=== PATIENT | female | born 1950 | race Caucasian/White ===

== ENCOUNTER → 2018-04-15 12:52 | Outpatient (CLI) | payer MEDICARE, OTHER, SELFPAY | PROVIDERS: PCP Nurse Practitioner Family; Visit Provider Nurse Practitioner Family | DX: M85.832 Other specified disorders of bone density and structure, left forearm (principal); Z78.0 Asymptomatic menopausal state; Z85.42 Personal history of malignant neoplasm of other parts of uterus | CPT/HCPCS: 77080; 77081 ==

== ENCOUNTER → 2019-08-16 10:41 | Outpatient (CLI) | payer MEDICARE, OTHER, SELFPAY ==
--- NOTE | 2019-08-18 11:20 | DIET.PN ---
Diabetes Intake: Initial Assessment Assess: Mrs Ryan is a 69 YOF referred for type 2 diabetes, hyperlipidemia, and obesity. She is newly diagnosed x 1 week ago. She presents with concerns related to several side effects related to food allergies from dark green vegetables including hay fever, eczema, contact dermatitis, and asthma. She is not taking any diabetes medications and is currently not monitoring her BG as she has not yet been prescribed a meter. She discussed some barriers to physical activity including 2 hip replacements and knee issues. She is walking daily, but is not able to go more than 15-20 min at a time. She appears very motivated to control her diabetes. Labs: Per pt report: A1c: 6.5 FB TC: 176 LDL: 68 HDL: 81 Tr Meds: NA Diet: per 24 hr recall: reports very high in starch and sugar. She has a sweet tooth Wt: 220 lb Ht: 62 in BMI: 40.2 Goal Wt: < 200 (214 @ 10%) DX: Altered nutrition related laboratory values related to impaired glucose metabolism, lack of previous exposure to nutrition information as evidenced by pt report, diagnosis of diabetes, previous diet high in refined carbohydrates. Intervention: 1. Completed intake assessment. Discussed barriers to care. 2. Discussed pathophysiology of diabetes. Reviewed A1c and its correlation to blood glucose numbers. Discussed recommended BG ranges. 3. Discussed importance of self-monitoring, how often, and when to check. Will demonstrate use of meter when received. 4. Reviewed hyper/hypoglycemia and treatment. 5. Reviewed safe disposal of equipment (strip/lancets/insulin needles). 6. Created SMART goals for pt self-care and success. 7. Discussed program curriculum outline and class needs based on individual goals. SMART Goals: 1. Lose 5% of current weight in 3 months with an overall goal of 10% through changes in dietary patterns by cutting down on starches and increased physical activity. 2. Lower A1c by monitoring FBG and alternating PPG. Monitor/Evaluate: Anticipate excellent compliance. Pt will attend full DSME program. Exercise and Lifestyle scheduled for 08/18/19.
== END ==
PROVIDERS: PCP Nurse Practitioner Family; Visit Provider Nurse Practitioner Family
DX: E11.9 Type 2 diabetes mellitus without complications (principal); E78.5 Hyperlipidemia, unspecified; E66.9 Obesity, unspecified; Z71.3 Dietary counseling and surveillance
CPT/HCPCS: G0108

== ENCOUNTER → 2019-08-18 09:51 | Outpatient (CLI) | payer MEDICARE, OTHER, SELFPAY | PROVIDERS: PCP Nurse Practitioner Family; Visit Provider Nurse Practitioner Family | DX: E11.9 Type 2 diabetes mellitus without complications (principal); E78.5 Hyperlipidemia, unspecified; E66.9 Obesity, unspecified; Z71.3 Dietary counseling and surveillance | CPT/HCPCS: G0109 ==

== ENCOUNTER → 2019-08-19 13:27 | Outpatient (CLI) | payer MEDICARE, OTHER, SELFPAY ==
--- NOTE | 2019-08-19 | DI.MG.S_ITS ---
BILATERAL DIGITAL SCREENING MAMMOGRAM 3D/2D WITH CAD: 08/19/2019 CLINICAL: Routine screening. Family history of breast cancer. Comparison is made to exams dated: 02/07/2010 mammogram, 02/14/2010 mammogram, 10/27/2011 mammogram, and 12/10/2012 mammogram - [facility]. The tissue of both breasts is predominantly fatty. Current study was also evaluated with a Computer Aided Detection (CAD) system. There is a biopsy clip in the left breast. No significant masses, calcifications, or other findings are seen in either breast. There has been no significant interval change. IMPRESSION: NEGATIVE There is no mammographic evidence of malignancy. A 1 year screening mammogram is recommended. This exam was interpreted at Station ID: [id number]. NOTE: For mammograms, a report in lay terms will be sent to the patient. Approximately 15% of breast malignancies will not be visualized mammographically. In the management of a palpable breast mass, a negative mammogram must not discourage biopsy of a clinically suspicious lesion. Electronically Signed By: Richard garibay/nolan:08/20/2019 13:12:38 letter sent: Normal Exam ACR BI-RADS Category 1: Negative [id number]
== END ==
PROVIDERS: PCP Nurse Practitioner Family; Visit Provider Nurse Practitioner Family
DX: Z12.31 Encounter for screening mammogram for malignant neoplasm of breast (principal); Z80.3 Family history of malignant neoplasm of breast
CPT/HCPCS: 77063; 77067

== ENCOUNTER → 2019-08-22 14:02 | Outpatient (CLI) | payer MEDICARE, OTHER, SELFPAY | PROVIDERS: PCP Nurse Practitioner Family; Visit Provider Nurse Practitioner Family | DX: E11.9 Type 2 diabetes mellitus without complications (principal); Z71.3 Dietary counseling and surveillance | CPT/HCPCS: G0109 ==

== ENCOUNTER → 2019-09-01 09:45 | Outpatient (CLI) | payer MEDICARE, OTHER, SELFPAY ==
--- NOTE | 2019-09-01 15:19 | DIET.PN ---
Dietary Progress Note Diabetes: Healthy Eating 2 Intervention: Fats effects on glucose, weight, heart disease, cholesterol Sat Vs Unsat Protein- animal and plant based options Low, med, high fat meats Sugar substitutes Sodium Health claims Grocery shopping guidelines Eating away from home Alcohol Sick day guidelines
== END ==
PROVIDERS: PCP Nurse Practitioner Family; Visit Provider Nurse Practitioner Family
DX: E11.9 Type 2 diabetes mellitus without complications (principal); Z71.3 Dietary counseling and surveillance
CPT/HCPCS: G0108

== ENCOUNTER → 2019-09-26 12:43 | Outpatient (CLI) | payer MEDICARE, OTHER, SELFPAY ==
[2019-09-26 12:53] VITALS: BMI 40.2
--- NOTE | 2019-09-26 16:26 | DIET.PN ---
DIABETES Nutrition Initial Assessment:? LABS: Per pt report:? FB?s 2hr PP: low 100?s ? Weight: 218 lb (down from 226) Height: 62? NUTRITION DX 1. Altered Nutrition related labs related to impaired glucose metabolism, lack of previous exposure to accurate nutrition information as evidenced by pt report, dx of diabetes, previous diet high in refined carbohydrates.? INTERVENTION(s): 1. Discussed pathophysiology of diabetes and impact of nutrition/diet on blood sugar control.? Discussed fed versus non-fed state.?? 2. Discussed the effect of carbohydrates/protein/fat on blood sugar control.? Stressed importance of consistent carbohydrate intake at each meal and provided instructions for recommended servings/portions of carbohydrates/protein per meal. Provided pt with educational material. 3. Reviewed carbohydrate counting and measuring carbohydrate content via servings sizes and reading nutrition labels.? Provided handouts.?? 4. Discussed the difference between simple versus complex carbohydrates and the effect of fiber on blood sugar control.? Discussed various methods to increase fiber content in diet. 5. Stressed importance of meal timing and not going >4-5 hours between meals. Encouraged adding protein to evening snack to support glucose control overnight. Patient agreeable. 6. Discussed healthy weight loss goals of 1-2lbs per week through diet and exercise.? Pt agreeable to walking at least 30 minutes daily. MONITOR/EVALUATE: Anticipate excellent compliance.? Nutrition follow-up scheduled for 1 month.
== END ==
PROVIDERS: PCP Nurse Practitioner Family; Visit Provider Nurse Practitioner Family
DX: E11.9 Type 2 diabetes mellitus without complications (principal); Z71.3 Dietary counseling and surveillance
CPT/HCPCS: G0109

== ENCOUNTER → 2019-11-21 09:48 | Outpatient (CLI) | payer MEDICARE, OTHER, SELFPAY ==
--- NOTE | 2019-11-21 14:00 | DIET.PN ---
Diabetes Follow Up Assess: Met for Ms. Ryan?s 3 mo follow up visit. She is happy to report a decrease in her A1c and weight loss since beginning the DSME. She has increased her vegetable intake and continues to try new vegetables and ways to prepare them. She has been weighing her food and reading food labels differently. She admits it was challenging at first, but she is learning to try new options and tricks for curbing her sweet tooth without indulging too much. She has been trying different sugar substitutes is now making her own trail mixes. She has not been able to be active for many years due to a back injury. She purchased a glider for indoor activity and has now been exercising 20-30 min every day. Labs: A1c: 6.3 album/creat: 10 Meds: none Dietary changes: portion control, label reading, cutting out sweets Ht: 62? Wt: 211 (down 9#) BMI: 38.5 Nutrition DX: Altered nutrition related laboratory values related to impaired glucose metabolism, lack of previous exposure to nutrition information as evidenced by pt report, diagnosis of diabetes, previous diet high in refined carbohydrates. Intervention: 1. Completed follow up assessment. Reviewed barriers to care. 2. Reviewed new labs and importance of continued BG monitoring. 3. Reviewed SMART goals and made modifications where appropriate including wt management, activity, and A1c goals. 4. Discussed plan for ongoing support. Provided information for continued support and success. SMART goals: 1. Continue portion control by weighing and measuring foods. 2. Continue to research new ways and/or foods to not feel deprived reducing sugar. 3. Continue exercising daily for 30 min while working to increase intensity. Monitor/Evaluate: Pt will follow up in 3 mo to discuss new labs and barriers to care.
== END ==
PROVIDERS: PCP Nurse Practitioner Family; Referring Provider Nurse Practitioner Family; Visit Provider Nurse Practitioner Family
DX: E11.9 Type 2 diabetes mellitus without complications (principal); E66.9 Obesity, unspecified; Z68.38 Body mass index [BMI] 38.0-38.9, adult; Z71.3 Dietary counseling and surveillance
CPT/HCPCS: G0109

== ENCOUNTER → 2019-12-08 09:44 | Outpatient (CLI) | payer MEDICARE, OTHER, SELFPAY ==
--- NOTE | 2019-12-08 12:02 | DIET.PN ---
Diabetes Physiology: Intervention 1. Diabetes physiology 2. Detecting and treatment of acute and chronic complications 3. Diagnosis of and difference in types of diabetes 4. Self-monitoring and pattern management a. Demonstrate glucometer and control testing b. Explain BG results and action to take when out of range. 5. Foot , eye, dental care 6. Medications a. Oral medication classification b. Injectable c. Insulin i. Injection protocol ii. Other delivery methods
== END ==
PROVIDERS: PCP Nurse Practitioner Family; Referring Provider Nurse Practitioner Family; Visit Provider Nurse Practitioner Family
DX: E11.9 Type 2 diabetes mellitus without complications (principal); Z71.3 Dietary counseling and surveillance
CPT/HCPCS: G0109

== ENCOUNTER 2020-05-30 10:59 | Inpatient (IN) | payer MEDICARE, OTHER, SELFPAY ==
[2020-05-30] VITALS (9 sets, daily range): BP systolic 107–142; BP diastolic 57–84; PULSE 50–95; RESP 15–22; TEMP 36.1–36.7; O2SAT 94–100; BMI 35.5
--- NOTE | 2020-05-30 11:19 | DI.RAD.S_ITS ---
PROCEDURE: XR CHEST 2V INDICATIONS: HYPOXEMIA TECHNIQUE: 2 views of the chest were acquired. COMPARISON: None. FINDINGS: Surgical changes and devices: None. Lungs and pleura: Lungs are minimally abnormal with a small degree of stranding at the left lung base adjacent to the left ventricular apex. No pleural effusions or pneumothorax. Mediastinum: Mediastinal contours are normal. Heart size is normal. Bones and chest wall: No suspicious bony abnormalities. Soft tissues appear unremarkable. IMPRESSION: Possible mild or early pneumonia versus scarring left lower lobe adjacent to the left ventricular apex. Dictated by: Anselmo Newman M.D. on 05/30/2020 at 11:58 Approved by: Anselmo Newman M.D. on 05/30/2020 at 11:59
[2020-05-30 11:38] LABS: Add Manual Diff / Slide Review NO; Basophils Absolute Auto 100 /uL (0-100); Basophils Percent Auto 0.4 % (0-2); Eosinophils Absolute Auto 0 /uL (0-450); Eosinophils Percent Auto 0.1 % (2-4); Hematocrit 32.9 % (36-46); Hemoglobin 10.9 g/dL (12.0-16.0); Lymphocytes Absolute Auto 3100 /uL (1100-4500); Lymphocytes Percent Auto 25.8 % (25-40); Mean Corpuscular Hemoglobin 29.4 PG (26-34); Mean Corpuscular Volume 89.1 fL (80-100); Monocytes Absolute Auto 800 /uL (0-900); Monocytes Percent Auto 6.2 % (3-14); Neutrophils Absolute Auto 8100 /uL (1500-7000); Neutrophils Percent Auto 67.5 % (50-75); Platelet Count 322 X10^3/uL (150-400); Red Blood Cell Count 3.69 X10^6/uL (4.0-5.2); Red Cell Distribution Width 14.8 % (11.6-14.8); White Blood Cell Count 12.1 X10^3/uL (4.5-11.0)
[2020-05-30 11:45] LABS: INR 1.1 (0.9-1.3); Prothrombin Time 12.3 SECONDS (10.1-12.7)
[2020-05-30 11:47] LABS: PTT Partial Thromboplastin Tim 29 SECONDS (26.4-36.2)
[2020-05-30 11:50] LABS: Alanine Aminotransferase 28 IU/L (<35); Albumin 4.3 g/dL (3.5-5.0); Albumin Globulin Ratio 1.5 (1.0-2.8); Alkaline Phosphatase 96 U/L (38-126); Aspartate Aminotransferase 34 IU/L (14-36); BUN Creatinine Ratio 40.3 (6-22); Bilirubin Total 0.3 mg/dL (0.2-1.3); Blood Urea Nitrogen 31 mg/dL (7-17); Calcium 9.5 mg/dL (8.4-10.2); Carbon Dioxide 21 mmol/L (22-32); Chloride 103 mmol/L (98-107); Estimated Glomerular Filt Rate > 60.0 mL/min (>60); Globulin 2.9 g/dL (1.7-4.1); Glucose 160 mg/dL (80-110); HEMOLYSIS < 15 (0-50); Sodium 136 mmol/L (137-145); Total Protein 7.2 g/dL (6.3-8.2)
[2020-05-30 11:58] LABS: Amylase 70 U/L (30-110); Lipase 118 U/L (23-300)
[2020-05-30] MEDS: SODIUM CHLORIDE 0.9% 1,000 ML 150 ML IV ×2 (12:18→21:17)
[2020-05-30] MEDS: PANTOPRAZOLE 40 MG VIAL IV ×2 (12:18→21:17)
[2020-05-30] MEDS: INSULIN ASPART 100 UNIT/ML INSULN PEN SUBCUT (12:18)
[2020-05-30 12:35] LABS: Thyroid Stimulating Hormone 3.58 uIU/mL (0.47-4.68)
[2020-05-30 13:03] LABS: COVID19 -Nasal RAPID Negative (Negative)
[2020-05-30] MEDS: ACETAMINOPHEN 325 MG TABLET 650 MG PO (13:17)
--- NOTE | 2020-05-30 13:30 | PM.CN ---
History of Present Illness Consult details Date Patient Seen: 05/30/20 Time Patient Seen: 12:30 Chief complaint: GI bleed Reason for consult: GI bleed Requesting provider: Cecilia Oliva Narrative: The patient is a woman who began having black bowel movements on Wednesday. She has had several each today since then. She noticed also some vague discomfort across her lower abdomen the night before the black bowel movements began. She has never had this happen though she has had hematemesis in the distant past related to antibiotic use. She has been feeling dizzy if she stands for a long time and her heart rate goes up since Wednesday. She has not had any heart problems in the past. Her only abdominal procedures have been a total abdominal hysterectomy. Meds Home Medications and Allergies Home Medications Medication Instructions Recorded Confirmed Type simvastatin 20 mg PO BEDTIME 05/30/20 05/30/20 History Allergies Allergy/AdvReac Type Severity Reaction Status Date / Time latex AdvReac Rash Verified 05/30/20 12:48 Penicillins AdvReac Nausea Verified 05/30/20 12:48 raw vegetable AdvReac Rash Verified 05/30/20 12:48 shellfish derived AdvReac Rash Verified 05/30/20 12:49 Review of Systems Review of Systems Narrative: Patient has a headache she believes because she did not have caffeine this morning. No pain in her eyes double vision earache sore throat or trouble swallowing. She is missing her right lower crown. She has no pain because she had a root canal in that tooth. She does were glasses. No cough or cold. She used to get breathing attacks and wheezing but that was many years ago. She has no chest pain or heart murmurs. She does get short winded with walking it especially right now. Patient has no bloody bowel movements. No hematemesis. No nausea. No dysuria hematuria or kidney stones. Patient denies seizures or blackouts. She denies anxiety or depression. She denies problems with easy bruising or use of anticoagulants. She denies problems with her pancreas or her thyroid though she is a diet-controlled diabetic. Exam Vital Signs (past 8 hours): - 05/30/20 12:06 Temperature 98 F Pulse Rate 95 H Respiratory Rate 16 Blood Pressure 135/75 Pulse Oximetry 99 Oxygen Flow Rate 0 Narrative Exam Narrative: Cooperative woman in no apparent distress. Her BMI is 35.5. Her eyes are nonicteric. Pupils equal round reactive to light. Conjunctiva pink ears without lesion nasal septum midline. Missing the crown from the right lower. No splits in her lips. Her lungs are clear to auscultation without rales or rhonchi. Equal percussion. Heart regular rate and rhythm without murmur gallop. No bruit in the neck. No mass in the neck. No neck or supraclavicular nodes. Abdomen is protuberant soft. There is no guarding. No tenderness whatsoever at this time. She is alert and oriented x3. Speech rate and content are appropriate. Affect is appropriate. Objective Labs Result Diagrams: 05/30/20 11:26 05/30/20 11:26 Labs: Laboratory Results - last 24 hr 05/30/20 05/30/20 05/30/20 11:26 11:26 11:26 WBC 12.1 H RBC 3.69 L Hgb 10.9 L Hct 32.9 L MCV 89.1 MCH 29.4 MCHC 33.0 RDW 14.8 Plt Count 322 Neut % (Auto) 67.5 Lymph % (Auto) 25.8 Donley % (Auto) 6.2 Eos % (Auto) 0.1 L Baso % (Auto) 0.4 Neut # (Auto) 8100 H Lymph # (Auto) 3100 Donley # (Auto) 800 Eos # (Auto) 0 Baso # (Auto) 100 PT 12.3 INR 1.1 APTT 29 Sodium 136 L Potassium 4.0 Chloride 103 Carbon Dioxide 21 L BUN 31 H Creatinine 0.77 Estimated GFR > 60.0 BUN/Creatinine Ratio 40.3 H Glucose 160 H Calcium 9.5 Total Bilirubin 0.3 AST 34 ALT 28 Alkaline Phosphatase 96 Total Protein 7.2 Albumin 4.3 Globulin 2.9 Albumin/Globulin Ratio 1.5 Amylase Lipase TSH COVID-19 PCR Blood Type Antibody Screen 05/30/20 05/30/20 05/30/20 11:26 11:26 11:36 WBC RBC Hgb Hct MCV MCH MCHC RDW Plt Count Neut % (Auto) Lymph % (Auto) Donley % (Auto) Eos % (Auto) Baso % (Auto) Neut # (Auto) Lymph # (Auto) Donley # (Auto) Eos # (Auto) Baso # (Auto) PT INR APTT Sodium Potassium Chloride Carbon Dioxide BUN Creatinine Estimated GFR BUN/Creatinine Ratio Glucose Calcium Total Bilirubin AST ALT Alkaline Phosphatase Total Protein Albumin Globulin Albumin/Globulin Ratio Amylase 70 Lipase 118 TSH 3.58 COVID-19 PCR Blood Type O Positive Antibody Screen Negative 05/30/20 12:00 WBC RBC Hgb Hct MCV MCH MCHC RDW Plt Count Neut % (Auto) Lymph % (Auto) Donley % (Auto) Eos % (Auto) Baso % (Auto) Neut # (Auto) Lymph # (Auto) Donley # (Auto) Eos # (Auto) Baso # (Auto) PT INR APTT Sodium Potassium Chloride Carbon Dioxide BUN Creatinine Estimated GFR BUN/Creatinine Ratio Glucose Calcium Total Bilirubin AST ALT Alkaline Phosphatase Total Protein Albumin Globulin Albumin/Globulin Ratio Amylase Lipase TSH COVID-19 PCR Negative Blood Type Antibody Screen Assessment & Plan Assessment & Plan narrative: Patient with black bowel movements dizziness and tachycardia and shortness of breath with exertion most likely related to an upper GI bleed. She last ate this morning at 8:00 a.m.. We will perform an EGD at about 3:00 p.m.. I have discussed the procedure with her. Risks of bleeding perforation were discussed. She appears to understand wishes to proceed. I prescribed some Tylenol for her headache. She is already on a proton pump inhibitor. She is being given insulin related to her elevated glucose of 160.
--- NOTE | 2020-05-30 13:39 | PM.PREOP ---
Pre-operative Note COVID-19 COVID-19 status: Negative Result date/Date tested (Pos, Neg/Pending): 05/30/20 Interval Note History & Physical reviewed/Exam performed by Physician: Yes Changes to H&P: No ASA Class (for procedural sedation): II
--- NOTE | 2020-05-30 14:38 | PC.NURSE ---
Pt not in room at this time, pt was picked up for endoscopy, pt NPO and was allowed to have small amount of water with Tylenol per Dr Torres prior to procedure.
[2020-05-30] MEDS: LACTATED RINGERS 1,000 ML 200 ML IV (14:41)
[2020-05-30] MEDS: fentaNYL 250 MCG/5 ML INJ IV (15:22)
[2020-05-30] MEDS: MIDAZOLAM 5 MG/5 ML VIAL IV (15:23)
[2020-05-30] MEDS: LIDOCAINE 4% SOLN 50 ML 20 ML TOP (15:24)
[2020-05-30] MEDS: EPINEPHrine 1 MG/10 ML SYRINGE IV (15:36)
--- NOTE | 2020-05-30 15:36 | PM.OP.ENDO ---
Operative Date/Time/Diagnoses Date of procedure: 05/30/20 Time of procedure: 15:36 Pre-op diagnosis: Upper GI bleed Post-op diagnosis: same (Duodenal ulcer disease with evidence of recent bleed) Procedure & Clinicians Study performed: EGD with injection of epinephrine in ama-ulcer tissue Same procedure as scheduled: Yes Indications: Patient with an upper GI bleed. Diagnostic and therapeutic scope performed. Surgeon: Christ Torres Procedure Notes SCOAP/Timeout: Performed Procedure in detail: The patient had topical anesthetic applied to oropharynx. She was placed in left lateral decubitus position and underwent IV sedation directed by the surgeon consisting of fentanyl and Versed. A bite block was inserted and the scope was advanced through it into the esophagus. The esophagus was unremarkable. GE junction was noted at 38 cm from the incisors. The stomach insufflated well. There were no lesions seen in the body, antrum or at the incisura. There was no blood in the stomach or esophagus. The pyloric channel was is widely patent. The duodenum had a deep posterior ulcer with clot in place which I could not irrigate off. On the anterior wall opposite it was a small more superficial ulcer. No evidence of bleeding from it. I injected epinephrine surrounding the posterior wall ulcer with good blanching of the tissue circumferentially.. The scope was brought back into the stomach and retroflexed. The proximal stomach normal in appearance. The scope was straightened and brought out through the esophagus again. No lesions were seen. The scope was removed and the patient tolerated the procedure well. Scope withdrawal time: Not applicable Sedation minutes: 12 Findings: duodenal ulcer Specimen(s): none sent Complications: none Post-procedure Recommendations: Other recommendation (EGD in 10-12 weeks to confirm healing) Follow up: months (One) Disposition: PACU
[2020-05-30] MEDS: metroNIDAZOLE 500 MG TABLET PO ×2 (16:55→21:20)
[2020-05-30] MEDS: CLARITHROMYCIN 500 MG TABLET PO ×2 (16:55→21:21)
--- NOTE | 2020-05-30 17:48 | P.HP_ITS ---
History of Present Illness History of Present Illness Date Patient Seen: 05/30/20 Time Patient Seen: 11:29 Date of Onset of Symptoms: 05/27/20 Chief complaint: GI bleed Narrative: This pleasant 69-year-old female is followed by nurse practitioners at our clinic and this is the 1st time that I am seeing her. She presents to the clinic urgently with complaints of dizziness and racing pulse. She initially had called thinking that she had a ear infection but then revealed that whenever she stands up she gets weak in her knees and feels like she is going to fall down or pass out and in fact gets presyncope with having tunnel vision. She then develops a racing heart and starts sweating with really minimal activity. She has had no appetite eating very little her stomach feels full and she feels queasy. She has not had diarrhea but she has had 3-4 stools a day that are black tar the wooziness made her think that she had your infect ion she has a problem with her muscle in her neck and at refers pain to this but she has had that for years. She takes Aleve on a regular basis sometimes takes it daily for arthritic pain. She does not drink alcohol. She drinks 1 cup of coffee a day and no soda. She really has not been eating much since Wednesday she has just been forcing herself to eat her blood sugars have been in the 90s fasti ng and after meals 127-175. She has not had fevers chills or cough. She has not had any abdominal pain but just feels bloating and feels that her upper stomach feels weird or C6. She has not had bright red blood per rectum she has not had hematochezia. 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 She then noticed the following day on May 28 that her stools were loose in look like tar they were just really black. It has persisted this way. She denies chest pain, cough, palpitations. She does get dyspneic with any exertion. Past medical history: 1. Type 2 diabetes that is diet controlled 2. Hyperlipidemia 3. Obesity 4. Osteopenia 5. Degenerative joint disease Allergies: Penicillin causes nausea Latex causes a rash Past surgical history: 1. Total abdominal hysterectomy with BSO secondary to fibroids 2. Bilateral hip replacement secondary to degenerative joint disease Family history: Father at age 87 he had an acute DC and deafness Mom age 83 she had a stroke coronary artery disease, hyperlipidemia, osteo porosis Patient had 3 siblings One sibling committed suicide, suffered from depression Other 2 siblings are healthy Social history: Patient lives in [facility]. She moved here 3 years ago. She lives alone. She has a sister who I believe lives in [place] and a brother who travels between [place] and working in [place]. Patient has no children Health related behavior: Patient does not smoke and never has not a regular basis Patient does not drink any alcohol Patient is not very active Immunizations: Influenza 07/24/2019 Tdap 04/12/2018 Review of systems: Negative other than in HPI Patient is not had colonoscopy recently Patient had orthostatic hypotension in the clinic. Blood pressures were in the low 100s at the clinic. Patient History Medical History Diabetes mellitus (Acute ~2018) Hyperlipidemia (Acute) Skin cancer (Acute) Surgical History History of hysterectomy for cancer (Acute ~1997) S/P hip replacement (Acute ~2002) S/P hip replacement (Acute ~1997) Family & Social History Social History: household members none Prior Living Arrangements House Safety & Behavioral: Feels Safe in Current Yes Environment Been Physically Hurt or No Threatened By a Person Suicidal Ideation Description None Suicide Plan Description No Plan Tobacco & Substance use: Smoking Status Never smoker alcohol intake never Substance Use Type marijuana Meds Home Medications and Allergies Home Medications Medication Instructions Recorded Confirmed Type simvastatin 20 mg PO BEDTIME 05/30/20 05/30/20 History Allergies Allergy/AdvReac Type Severity Reaction Status Date / Time latex AdvReac Rash Verified 05/30/20 12:48 Penicillins AdvReac Nausea Verified 05/30/20 12:48 raw vegetable AdvReac Rash Verified 05/30/20 12:48 shellfish derived AdvReac Rash Verified 05/30/20 12:49 Exam Vital Signs (past 8 hours): - 05/30/20 12:06 05/30/20 15:43 05/30/20 15:45 Temperature 98 F 96.9 F L Pulse Rate 95 H 85 85 Respiratory Rate 16 22 19 Blood Pressure 135/75 112/59 L 114/57 L Pulse Oximetry 99 94 94 05/30/20 15:53 05/30/20 16:03 05/30/20 16:33 Temperature 97.6 F 97.4 F L Pulse Rate 50 L 82 82 Respiratory Rate 15 19 17 Blood Pressure 122/68 139/83 142/84 H Pulse Oximetry 98 100 97 05/30/20 17:25 Temperature 97.8 F Pulse Rate 95 H Respiratory Rate 17 Blood Pressure 136/70 Pulse Oximetry 100 Oxygen Delivery Method Room Air Oxygen Flow Rate 0 Narrative Exam Narrative: Patient is pale appears fatigued but no acute distress. Blood pressure 108/64. Patient was ambulated in the clinic and heart rate went to 154 and oxygen dropped to 85%. Patient is alert and oriented x3 Patient is a good historian HEENT: Unremarkable. Mucous membranes moist and pink Neck: Supple without adenopathy, thyromegaly, jugular venous distention or bruits Chest: Clear to auscultation without wheezes rhonchi or crackles Cor: Regular rate and rhythm with distant S1-S2, no audible murmur Abdomen: Positive bowel sounds, soft, nontender, nondistended, no hepatosplenomegaly, obese, mild midepigastric tenderness and left lower quadrant tenderness but no guarding, no rebound tenderness Extremities: No edema, pulses intact Skin no rashes Skin turgor normal Neurologic exam is unremarkable Rectal exam shows no masses or hemorrhoids or fissures but patient does have black tarry stool that is heme-positive Objective Labs Result Diagrams: 05/30/20 11:26 05/30/20 11:26 Labs: Laboratory Results - last 24 hr 05/30/20 05/30/20 05/30/20 11:26 11:26 11:26 WBC 12.1 H RBC 3.69 L Hgb 10.9 L Hct 32.9 L MCV 89.1 MCH 29.4 MCHC 33.0 RDW 14.8 Plt Count 322 Neut % (Auto) 67.5 Lymph % (Auto) 25.8 [place] % (Auto) 6.2 Eos % (Auto) 0.1 L Baso % (Auto) 0.4 Neut # (Auto) 8100 H Lymph # (Auto) 3100 [place] # (Auto) 800 Eos # (Auto) 0 Baso # (Auto) 100 PT 12.3 INR 1.1 APTT 29 Sodium 136 L Potassium 4.0 Chloride 103 Carbon Dioxide 21 L BUN 31 H Creatinine 0.77 Estimated GFR > 60.0 BUN/Creatinine Ratio 40.3 H Glucose 160 H Calcium 9.5 Total Bilirubin 0.3 AST 34 ALT 28 Alkaline Phosphatase 96 Total Protein 7.2 Albumin 4.3 Globulin 2.9 Albumin/Globulin Ratio 1.5 Amylase Lipase TSH COVID-19 PCR Blood Type Antibody Screen 05/30/20 05/30/20 05/30/20 11:26 11:26 11:36 WBC RBC Hgb Hct MCV MCH MCHC RDW Plt Count Neut % (Auto) Lymph % (Auto) [place] % (Auto) Eos % (Auto) Baso % (Auto) Neut # (Auto) Lymph # (Auto) [place] # (Auto) Eos # (Auto) Baso # (Auto) PT INR APTT Sodium Potassium Chloride Carbon Dioxide BUN Creatinine Estimated GFR BUN/Creatinine Ratio Glucose Calcium Total Bilirubin AST ALT Alkaline Phosphatase Total Protein Albumin Globulin Albumin/Globulin Ratio Amylase 70 Lipase 118 TSH 3.58 COVID-19 PCR Blood Type O Positive Antibody Screen Negative 05/30/20 12:00 WBC RBC Hgb Hct MCV MCH MCHC RDW Plt Count Neut % (Auto) Lymph % (Auto) [place] % (Auto) Eos % (Auto) Baso % (Auto) Neut # (Auto) Lymph # (Auto) [place] # (Auto) Eos # (Auto) Baso # (Auto) PT INR APTT Sodium Potassium Chloride Carbon Dioxide BUN Creatinine Estimated GFR BUN/Creatinine Ratio Glucose Calcium Total Bilirubin AST ALT Alkaline Phosphatase Total Protein Albumin Globulin Albumin/Globulin Ratio Amylase Lipase TSH COVID-19 PCR Negative Blood Type Antibody Screen Assessment & Plan Assessment & Plan narrative: 69-year-old female presents to clinic with dizziness and rapid heart rate with suspected upper GI bleed. Patient will be admitted to the hospital for further treatment and evaluation. Will start IV fluids at 150 cc an hour. Will do a stat CBC, CMP, lipase, amylase, TSH. Will do blood type and cross x2 units packed red blood cells. Will make her NPO Will start her on Protonix 40 mg IV Q 24 hours Will consult general surgery for probable EGD Will hold any further NSAIDs which I think is probably the causative agent. Assessment 2. Type 2 diabetes Plan: Currently will be NPO. Will do CBGS q.a.c. and q.h.s.. Will do sliding scale insulin low algorithm Assessment 3. Degenerative joint disease previously taking Aleve Plan: Will no longer be taking NSAIDs. Will use Tylenol as needed Assessment 4. Hyperlipidemia without any current issues Plan: Will give simvastatin once tolerating p.o. Assessment 5. : Hypoxemia and hypotension I suspect due to hypovolemia secondary to acute blood loss secondary to acute GI hemorrhage. Plan: IV fluids, EGD, Protonix, oxygen as needed, will monitor Code status is full code Co bit test is negative 75 minutes spent with patient in coordination of care exam formulation of plan and discussion with surgery COVID-19 COVID-19 status: Negative Result date/Date tested (Pos, Neg/Pending): 05/30/20 Quality VTE Deep Vein Thrombosis/Pulmonary Embolism Present on Admission: No
[2020-05-31] VITALS: BP 119/46; PULSE 89; RESP 16; TEMP 36.5; O2SAT 96
--- NOTE | 2020-05-31 00:16 | PC.NURSE ---
Patient seen and assessed at 2346. Is alert and oriented. Breath sounds CTA with RA sat of 96%. HRR; telemetry reading was SR. States she was having dizziness earlier but has now resolved. Denies nauseda. BT present and is passing flatus. Reports bloated feeling in abdomen but denies pain. Is able to turn herself in bed. Provided SBA when out of bed for safety as patient reports generalized weakness. Has trace bilateral pedal edema which she states is chronic. Fall risk score is moderate; bed alarm is activated.
[2020-05-31] MEDS: SODIUM CHLORIDE 0.9% 1,000 ML 150 ML IV ×4 (03:50→23:56)
[2020-05-31 03:52] VITALS: BP 103/58; PULSE 88; RESP 16; TEMP 37.2; O2SAT 93
[2020-05-31 05:18] LABS: Alanine Aminotransferase 23 IU/L (<35); Albumin Globulin Ratio 1.3 (1.0-2.8); Alkaline Phosphatase 66 U/L (38-126); Aspartate Aminotransferase 28 IU/L (14-36); BUN Creatinine Ratio 26.1 (6-22); Bilirubin Total 0.4 mg/dL (0.2-1.3); Blood Urea Nitrogen 18 mg/dL (7-17); Carbon Dioxide 24 mmol/L (22-32); Chloride 108 mmol/L (98-107); Estimated Glomerular Filt Rate > 60.0 mL/min (>60); Globulin 2.3 g/dL (1.7-4.1); Glucose 88 mg/dL (80-110); HEMOLYSIS < 15 (0-50); Potassium 3.8 mmol/L (3.4-5.1); Sodium 136 mmol/L (137-145); Total Protein 5.3 g/dL (6.3-8.2)
[2020-05-31 05:19] LABS: Add Manual Diff / Slide Review NO; Basophils Absolute Auto 100 /uL (0-100); Basophils Percent Auto 0.6 % (0-2); Eosinophils Absolute Auto 100 /uL (0-450); Eosinophils Percent Auto 0.7 % (2-4); Hematocrit 23.9 % (36-46); Hemoglobin 8.1 g/dL (12.0-16.0); Lymphocytes Absolute Auto 4000 /uL (1100-4500); Lymphocytes Percent Auto 39.3 % (25-40); Mean Corpuscular HGB Conc 33.9 % (30-36); Mean Corpuscular Hemoglobin 30.3 PG (26-34); Mean Corpuscular Volume 89.3 fL (80-100); Monocytes Absolute Auto 800 /uL (0-900); Monocytes Percent Auto 7.4 % (3-14); Neutrophils Absolute Auto 5300 /uL (1500-7000); Platelet Count 241 X10^3/uL (150-400); Red Blood Cell Count 2.68 X10^6/uL (4.0-5.2); Red Cell Distribution Width 14.7 % (11.6-14.8); White Blood Cell Count 10.2 X10^3/uL (4.5-11.0)
--- NOTE | 2020-05-31 06:04 | PM.PN.1 ---
Subjective Subjective Date Patient Seen: 05/31/20 Time Patient Seen: 06:04 Interval history: Doing better this morning. Still having some minor abdominal upset but denies nausea. No vomiting. Has been able to advance her diet. Still feeling very fatigued and weak. Exam Vital Signs (past 8 hours): - 05/31/20 00:00 05/31/20 03:52 Temperature 97.7 F 98.9 F Pulse Rate 89 88 Respiratory Rate 16 16 Blood Pressure 119/46 L 103/58 L Pulse Oximetry 96 93 Oxygen Delivery Method Room Air Oxygen Flow Rate 0 Narrative Exam Narrative: GENERAL: Alert and oriented, appearing stated age and in no acute distress. HEENT: Head normocephalic/atraumatic. Pupils equal, round, and reactive to light and accomodation. Extraocular muscles intact. Nasal mucosa moist, septum midline. Oral mucosa moist, no lesions. Neck soft and supple, no lymphadenopathy. LUNGS: Clear to ausculation bilaterally, no wheezes, rhonchi or rales. CV: Normal S1 and S2 with regular rate and rhythm, no audible murmurs, rubs or gallops. ABDOMEN: Soft, non-tender, non-distended, no organomegaly. Positive bowel sounds. EXTREMITIES: No clubbing, cyanosis, or edema. NEURO: Cranial nerves II through XII grossly intact, no focal deficits. PSYCH: Alert and oriented x 3. SKIN: No concerning lesions. Objective Labs Result Diagrams: 05/31/20 04:35 05/31/20 04:35 Labs: Laboratory Results - last 24 hr 05/30/20 05/30/20 05/30/20 11:26 11:26 11:26 WBC 12.1 H RBC 3.69 L Hgb 10.9 L Hct 32.9 L MCV 89.1 MCH 29.4 MCHC 33.0 RDW 14.8 Plt Count 322 Neut % (Auto) 67.5 Lymph % (Auto) 25.8 [place] % (Auto) 6.2 Eos % (Auto) 0.1 L Baso % (Auto) 0.4 Neut # (Auto) 8100 H Lymph # (Auto) 3100 [place] # (Auto) 800 Eos # (Auto) 0 Baso # (Auto) 100 PT 12.3 INR 1.1 APTT 29 Sodium 136 L Potassium 4.0 Chloride 103 Carbon Dioxide 21 L BUN 31 H Creatinine 0.77 Estimated GFR > 60.0 BUN/Creatinine Ratio 40.3 H Glucose 160 H Calcium 9.5 Total Bilirubin 0.3 AST 34 ALT 28 Alkaline Phosphatase 96 Total Protein 7.2 Albumin 4.3 Globulin 2.9 Albumin/Globulin Ratio 1.5 Amylase Lipase TSH COVID-19 PCR Blood Type Antibody Screen 05/30/20 05/30/20 05/30/20 11:26 11:26 11:36 WBC RBC Hgb Hct MCV MCH MCHC RDW Plt Count Neut % (Auto) Lymph % (Auto) [place] % (Auto) Eos % (Auto) Baso % (Auto) Neut # (Auto) Lymph # (Auto) [place] # (Auto) Eos # (Auto) Baso # (Auto) PT INR APTT Sodium Potassium Chloride Carbon Dioxide BUN Creatinine Estimated GFR BUN/Creatinine Ratio Glucose Calcium Total Bilirubin AST ALT Alkaline Phosphatase Total Protein Albumin Globulin Albumin/Globulin Ratio Amylase 70 Lipase 118 TSH 3.58 COVID-19 PCR Blood Type O Positive Antibody Screen Negative 05/30/20 05/31/20 05/31/20 12:00 04:35 04:35 WBC 10.2 RBC 2.68 L Hgb 8.1 L Hct 23.9 L MCV 89.3 MCH 30.3 MCHC 33.9 RDW 14.7 Plt Count 241 Neut % (Auto) 52.0 Lymph % (Auto) 39.3 [place] % (Auto) 7.4 Eos % (Auto) 0.7 L Baso % (Auto) 0.6 Neut # (Auto) 5300 Lymph # (Auto) 4000 [place] # (Auto) 800 Eos # (Auto) 100 Baso # (Auto) 100 PT INR APTT Sodium 136 L Potassium 3.8 Chloride 108 H Carbon Dioxide 24 BUN 18 H Creatinine 0.69 Estimated GFR > 60.0 BUN/Creatinine Ratio 26.1 H Glucose 88 Calcium 8.0 L Total Bilirubin 0.4 AST 28 ALT 23 Alkaline Phosphatase 66 Total Protein 5.3 L Albumin 3.0 L Globulin 2.3 Albumin/Globulin Ratio 1.3 Amylase Lipase TSH COVID-19 PCR Negative Blood Type Antibody Screen Assessment & Plan Assessment & Plan narrative: 69-year-old female with dizziness and rapid heart rate, HD #1 1. Upper GI Bleed -Holding NSAIDs. -EGD on 05/30/20 confirmed duodenal ulcer, status post injection of epinephrine at base of ulcer, risk for rebleed with downward trend of H/H this morning. PLAN: Continue Protonix, trend CBC this pm to ensure patient is not having a rebleed. Anticipate discharge to home tomorrow if hemodynamically stable. 2. Type 2 diabetes Plan: Diabetic diet. Will do CBGS q.a.c. and q.h.s.. Will do sliding scale insulin, low algorithm 3. Degenerative joint disease, previously on Aleve Plan: Have stopped NSAIDs. Will use Tylenol as needed 4. Hyperlipidemia without any current issues Plan: Will give simvastatin once tolerating p.o. 5. Hypotension, likely secondary to hypovolemia from acute blood loss due to acute GI hemorrhage. Plan: IV fluids, Protonix, oxygen as needed, will monitor. Code status is full code Quality VTE Deep Vein Thrombosis/Pulmonary Embolism Present on Admission: No
[2020-05-31 07:26] VITALS: BP 94/55; PULSE 83; RESP 16; TEMP 36.1; O2SAT 98
[2020-05-31] MEDS: metroNIDAZOLE 500 MG TABLET PO ×3 (08:45→21:01)
[2020-05-31] MEDS: CLARITHROMYCIN 500 MG TABLET PO ×2 (08:45→21:01)
[2020-05-31] MEDS: INSULIN ASPART 100 UNIT/ML INSULN PEN SUBCUT (08:49)
--- NOTE | 2020-05-31 09:27 | CM.DANOTE ---
Patient is a 69 year old female who was admitted on 05/30/20 for GI Bleed. Pt has M[place] and [place] for [place] and her PCP is NANDO Grossman. EMR was reviewed. Per MD, pt with duodenal ulcer and received 2 units of blood after having an Endoscopy. SW met bedside with pt and explained role and pt confirms she lives at home in [place] and is independent with ADL's at baseline and denies any hx of HH or SNF. Pt has not fully completed DPOA pwk yet but is working on it. Pt states she lives alone but her brother stays with her 4 days a week for his job and will be staying with pt at d/c and available to provide assist at d/c. Pt's sister also lives in [place] and supportive. Pt does not anticipate any needs at d/c and preference is home today if possible. Plan: SW to follow for MD to round to determine if pt safe for d/c home via brother POV or tomorrow when medically stable and any further d/c planning needs. HASEEB Hummel Discharge Planning/Care Management CM Discharge Assessment Start: 05/31/20 09:25 Freq: Status: Active Protocol: Document 05/31/20 09:25 BF (Rec: 05/31/20 09:27 BF [id number]) Discharge Planning Assessment Assigned Legislators HASEEB Walter Advance Directives? No: has paperwork but has not filled it out. Advance Directives on File No History Provided By Patient,Medical Record Has Patient been admitted in last 30 No days? Prior Living Arrangements House Household Members family,none Comment Patient lives alone half the week and the other 4 days her brother stays at her house as he works in the area Type of transporation used prior to Drives own vehicle admit Independent with ADL's Yes Is patient alert and oriented? Yes Caregiver for Another No Comment Likely home no needs Barriers to Discharge No Discharge Plan Home Transportation Arrangement POV Referrals Initiated None needed Review Status In Process Please Provide Date Initial DC 05/31/20 Assessment Was Performed Next Review Type Continued Stay Review
[2020-05-31] MEDS: PANTOPRAZOLE 40 MG VIAL IV ×2 (09:42→21:01)
[2020-05-31 11:18] VITALS: BP 127/61; PULSE 82; RESP 16; TEMP 36.4; O2SAT 99
--- NOTE | 2020-05-31 14:46 | PC.NURSE ---
Am shift. Pt is tolerating clear liquid diet, no nausea but poor intake overall. Tylenol for head ache. Clear lungs, Spo2 94% RA. Bloated feeling with soft ABD. Flatus + no bm today. HH low today. recheck CBC @ 1630. Sergio to see Pt later today again, @ 1440, Pt alerted this RN to L calf pain, feels like a knot is in my calf SCDs removed. Doppler at bedside to assess peripheral pulses. Call into Dr Bass's nurse to update.
[2020-05-31 15:22] VITALS: BP 103/52; PULSE 80; RESP 18; TEMP 36.4; O2SAT 99
[2020-05-31 17:57] LABS: Hematocrit 23.2 % (36-46); Hemoglobin 7.8 g/dL (12.0-16.0)
[2020-05-31] MEDS: ACETAMINOPHEN 325 MG TABLET 650 MG PO (19:16)
[2020-05-31 19:40] VITALS: BP 113/59; PULSE 78; RESP 18; TEMP 36.3; O2SAT 99
[2020-05-31] MEDS: diphenhydrAMINE 25 MG TABLET PO (23:12)
[2020-06-01] VITALS (11 sets, daily range): BP systolic 95–133; BP diastolic 46–64; PULSE 62–93; RESP 16–18; TEMP 36–37.2; O2SAT 96–99
--- NOTE | 2020-06-01 00:41 | PC.NURSE ---
Addendum entered by Korin Ramirez R.N. 06/01/20 05:46: Lab results returned and Dr Martin informed of patient's anxiety and discomfort along with lab results. No new orders at this time. Addendum entered by Korin Ramirez R.N. 06/01/20 05:19: Patient teary after hemodialysis lab technician in to draw blood. States every time I've been in the hospital I've gotten better but this time I'm just getting worse. Reports everybody who comes in here hurts me. When asked who how she had been hurt states where ever you touch me it hurts. Offered to call Dr Martin for other pain medications but patient states I won't take them. When asked how staff can help her indicates her IV and states she wants to be disconnected from all the tubes and I just want to go home. Discussed reason she is still in the hospital and that discharge is dependent on results of lab. Continues to be teary and asked again what staff can do to help and she states I don't know. Explained will wait for lab results to come in and then MD will be contacted; verbalized agreement. Original Note: Patient seen and assessed at 0002. Is alert and oriented. Is complaining of pain across forehead and radiates down left side of face. At shift change was rating pain as 7-8/10 and was given Benadryl per evening RN as MD had been contacted and made aware and had given the order for Benadryl. Currently patient states the pain is beginning to subside. Declined offer of either heat or ice as states she cannot tolerate any pressure on face. Breath sounds CTA with RA sat of 97% and denies any SOB at rest or with exertion. HRR; telemetry reading was SR. Denies nausea. BT present and states she is passing flatus. Denies dysuria, frequency or urgency with urination. Is able to turn herself in bed. For safety is provided SBA when up to bathroom. Fall risk score is moderate; bed alarm is activated.
[2020-06-01] MEDS: ACETAMINOPHEN 325 MG TABLET 650 MG PO (00:59)
[2020-06-01 05:30] LABS: Add Manual Diff / Slide Review NO; Basophils Absolute Auto 100 /uL (0-100); Basophils Percent Auto 0.9 % (0-2); Eosinophils Absolute Auto 100 /uL (0-450); Hemoglobin 7.3 g/dL (12.0-16.0); Lymphocytes Absolute Auto 2700 /uL (1100-4500); Lymphocytes Percent Auto 35.7 % (25-40); Mean Corpuscular HGB Conc 33.4 % (30-36); Mean Corpuscular Hemoglobin 30.1 PG (26-34); Mean Corpuscular Volume 90.2 fL (80-100); Monocytes Absolute Auto 600 /uL (0-900); Monocytes Percent Auto 7.6 % (3-14); Neutrophils Absolute Auto 4000 /uL (1500-7000); Neutrophils Percent Auto 53.8 % (50-75); Platelet Count 221 X10^3/uL (150-400); Red Blood Cell Count 2.44 X10^6/uL (4.0-5.2); Red Cell Distribution Width 14.9 % (11.6-14.8); White Blood Cell Count 7.5 X10^3/uL (4.5-11.0)
[2020-06-01 05:39] LABS: BUN Creatinine Ratio 15.2 (6-22); Blood Urea Nitrogen 10 mg/dL (7-17); Calcium 7.5 mg/dL (8.4-10.2); Carbon Dioxide 25 mmol/L (22-32); Chloride 109 mmol/L (98-107); Estimated Glomerular Filt Rate > 60.0 mL/min (>60); Glucose 96 mg/dL (80-110); HEMOLYSIS < 15 (0-50); Potassium 3.1 mmol/L (3.4-5.1); Sodium 137 mmol/L (137-145)
[2020-06-01] MEDS: SODIUM CHLORIDE 0.9% 1,000 ML 150 ML IV (06:26)
--- NOTE | 2020-06-01 09:09 | PM.PN.1 ---
Subjective Subjective Date Patient Seen: 06/01/20 Time Patient Seen: 09:09 Interval history: Patient with no additional GI symptoms Has persistent headache since she was admitted. Now just feels generally miserable. Feels like everything that touches her skin is making her uncomfortable. Her arthritic symptoms in her back and her hands particularly are coarse stirred up without the leave on board Really has very little in the way of appetite Exam Vital Signs (past 8 hours): - 06/01/20 04:00 Temperature 97.3 F L Pulse Rate 81 Respiratory Rate 18 Blood Pressure 118/54 L Pulse Oximetry 96 Oxygen Delivery Method Room Air Oxygen Flow Rate 0 Objective Labs Result Diagrams: 06/01/20 05:01 06/01/20 05:01 Labs: Laboratory Results - last 24 hr 05/31/20 06/01/20 06/01/20 17:48 05:01 05:01 WBC 7.5 RBC 2.44 L Hgb 7.8 L 7.3 L Hct 23.2 L 22.0 L MCV 90.2 MCH 30.1 MCHC 33.4 RDW 14.9 H Plt Count 221 Neut % (Auto) 53.8 Lymph % (Auto) 35.7 [place] % (Auto) 7.6 Eos % (Auto) 2.0 Baso % (Auto) 0.9 Neut # (Auto) 4000 Lymph # (Auto) 2700 [place] # (Auto) 600 Eos # (Auto) 100 Baso # (Auto) 100 Sodium 137 Potassium 3.1 L Chloride 109 H Carbon Dioxide 25 BUN 10 Creatinine 0.66 Estimated GFR > 60.0 BUN/Creatinine Ratio 15.2 Glucose 96 Calcium 7.5 L Assessment & Plan Assessment & Plan narrative: 1. Upper GI bleed with identified duodenal ulcer status post endoscopy with epi injection-blood counts are relatively stable since procedure. Do not believe she is actively bleeding at this time. Continue with IV proton pump inhibitor and for now anyway treatment for H pylori. The H pylori meds may well be contributing to her lack of appetite 2. Acute blood loss anemia-I think a lot of patient's symptoms are due to her rather severe anemia. I would certainly transfuse a 69-year-old diabetic with a hemoglobin and hematocrit at her level. She needs at least 2 units of packed red cells in my opinion not only to help her feel better but I think as a precautionary measure should she begin to bleed again from her identified duodenal ulcer. Therefore will transfuse her 2 units of packed red cells and give her Lasix in between. She has been rather vigorous IV fluid resuscitation that I do not think she needs at this point and will certainly give her some Lasix between units of blood 3. Diabetes-excellent control diet alone at this point. Her diet is been limited of course so that is part of the lesion here. No need for any additional intervention Note: Greater than 30 minutes was spent evaluating the patient on the floor, including examining the patient, discussing clinical course with clinical and nursing staff, reviewing clinical course in the computer, preparing documentation and writing orders for continued management of care, discussing status with family as appropriate, reviewing plans for the next 24 hours with both patient/family and nursing staff as appropriate. Quality VTE Deep Vein Thrombosis/Pulmonary Embolism Present on Admission: No
[2020-06-01] MEDS: PANTOPRAZOLE 40 MG VIAL IV (10:04)
[2020-06-01] MEDS: TRAMADOL 50 MG TABLET PO (10:14)
[2020-06-01] MEDS: CLARITHROMYCIN 500 MG TABLET PO (10:14)
[2020-06-01] MEDS: metroNIDAZOLE 500 MG TABLET PO ×2 (10:14→15:37)
--- NOTE | 2020-06-01 10:20 | P.PN_ITS ---
Subjective Subjective Date Patient Seen: 06/01/20 Time Patient Seen: 10:20 Interval history: The patient has not had a bowel movement since she has been here. Her initial hematocrit was in the 30s but now is 23. She feels discomfort from the tip of her toes to the top of her head. All the pain is somewhat vague. She is not sure fits her arthritis. She has got some nausea and initially refused her oral antibiotics because of it. She just does not feel well she says. She also specifically complains of a headache that has been present since she arrived. Tylenol did not touch it. Exam Vital Signs (past 8 hours): - 06/01/20 04:00 Temperature 97.3 F L Pulse Rate 81 Respiratory Rate 18 Blood Pressure 118/54 L Pulse Oximetry 96 Oxygen Delivery Method Room Air Oxygen Flow Rate 0 Narrative Exam Narrative: Lungs are clear to auscultation. No rales or rhonchi. Heart regular rate and rhythm without murmur gallop. Abdomen is protuberant but soft. There is no localized tenderness. No guarding. Objective Labs Result Diagrams: 06/01/20 05:01 06/01/20 05:01 Labs: Laboratory Results - last 24 hr 05/30/20 05/31/20 06/01/20 11:26 17:48 05:01 WBC 7.5 RBC 2.44 L Hgb 7.8 L 7.3 L Hct 23.2 L 22.0 L MCV 90.2 MCH 30.1 MCHC 33.4 RDW 14.9 H Plt Count 221 Neut % (Auto) 53.8 Lymph % (Auto) 35.7 [place] % (Auto) 7.6 Eos % (Auto) 2.0 Baso % (Auto) 0.9 Neut # (Auto) 4000 Lymph # (Auto) 2700 [place] # (Auto) 600 Eos # (Auto) 100 Baso # (Auto) 100 Sodium Potassium Chloride Carbon Dioxide BUN Creatinine Estimated GFR BUN/Creatinine Ratio Glucose Calcium Blood Type O Positive Antibody Screen Negative Crossmatch See Detail 06/01/20 05:01 WBC RBC Hgb Hct MCV MCH MCHC RDW Plt Count Neut % (Auto) Lymph % (Auto) [place] % (Auto) Eos % (Auto) Baso % (Auto) Neut # (Auto) Lymph # (Auto) [place] # (Auto) Eos # (Auto) Baso # (Auto) Sodium 137 Potassium 3.1 L Chloride 109 H Carbon Dioxide 25 BUN 10 Creatinine 0.66 Estimated GFR > 60.0 BUN/Creatinine Ratio 15.2 Glucose 96 Calcium 7.5 L Blood Type Antibody Screen Crossmatch Assessment & Plan Assessment & Plan narrative: A transfusion has been ordered which will probably make her feel better than anything else. The oral antibiotics she is on will upset her stomach and give her funny taste in her mouth. Unfortunately because of her penicillin allergy and limited as to what I can give her. Encouraged her to try to take it. I ordered 1 dose of Percocet to see if we can get rid of her headache which may make her feel a whole lot better. Advanced her diet to full liquid given the stability of her Simmons crit in the fact that she has not had a bowel movement since she arrived in the hospital. This suggests that her bleeding has stopped. The drop in her hematocrit probably actually represents the level of blood loss from the bleeding and it just required hydration for her to bottom out. There has been no change in her crit essentially for the last day. Quality VTE Deep Vein Thrombosis/Pulmonary Embolism Present on Admission: No
--- NOTE | 2020-06-01 10:42 | PC.NURSE ---
Addendum entered by Gabriela Fairbanks R.N. 06/01/20 14:41: Patients first unit of blood done and patient tolerated well. She has one more to be infused, she denies pain and states that tramadol for her headache has worked and she is feeling much better. Addendum entered by Gabriela Fairbanks R.N. 06/01/20 12:19: Patients first unit of blood up and infusing, she is tolerating this well. Started at 1116. Patient is in better spirits and sitting up in the chair and eating her now full liquid diet and tolerating well. She did take her po medications. Original Note: Patient teary eyed this am, she had a bad night last evening and did not want to do much of anything. This am she states that she feels a bit better but she did not want to take her po medication that helps with her ulcers. into see patient and informed her that the meds probably will upset her stomach but this will help her diagnosis. She is going to have 2u of prbcs, which are going to be started soon. Will have patient sign her consent, she did take her medication and was given tramadol for her headache.
[2020-06-01] MEDS: FUROSEMIDE 40 MG/4 ML VIAL IV (18:01)
[2020-06-01 19:06] LABS: Hematocrit 33.4 % (36-46); Hemoglobin 11.4 g/dL (12.0-16.0)
--- NOTE | 2020-06-01 21:25 | PC.NURSE ---
2009 - This OFFICE RN answered pt call light. Pt notified me that, When I pee it really hurts here. Pt pointed to her back left lower flank. When asked how much it hurt on a scale of 1 to 10 she said a nine. Pt denied pain when not voided and also said it did not burn when she voided either. Notified her RN of pain.
--- NOTE | 2020-06-01 22:57 | PC.NURSE ---
Dr. Martin called and given update of H/H results post transfusion. Notified Dr. Martin that the pt is unhappy with the medical management she has received and states I was healthy when I came here and everything you all have done has made be worse Dr. Martin also notified of low potassium level. Rec vto for KCL 20 MEQ PO. Pt declined all of her HS meds and states she is leaving first thing this the morning. She stated she would leave tonight but doesn't have a ride to leave. This manual writer called Dr. Martin and notified of the same.
[2020-06-02] VITALS: BP 155/69; PULSE 92; RESP 19; TEMP 36.7; O2SAT 95
--- NOTE | 2020-06-02 00:45 | PC.NURSE ---
Addendum entered by Korin Ramirez R.N. 06/02/20 05:36: Patient upset that bed alarm is being used. Verbalizes agreement to call staff prior to getting up. Does appear to be steady on feet and denies any dizziness. Original Note: Patient seen and assessed at 2329. Is alert and oriented. Depressed at still being in hospital but cooperative. Breath sounds CTA with RA sat of 95%. HRR with telemetry reading of SR. BT present and abdomen is soft; has not had BM x 4 days and MD is aware. Complains of having to urinate frequently related to having received Lasix after blood transfusion earlier; denies dysuria or incontinence. Able to turn self in bed. Up to bathroom with SBA. Trace bilateral pedal edema. Complains of 5/10 generalized pain but declines offer of pain medication. Fall risk score is moderate; bed alarm is activated.
[2020-06-02 05:27] VITALS: BP 130/62; PULSE 83; RESP 16; TEMP 36.6; O2SAT 95
[2020-06-02 05:44] LABS: Hematocrit 31.5 % (36-46); Hemoglobin 10.9 g/dL (12.0-16.0)
[2020-06-02 07:37] VITALS: BP 135/64; PULSE 80; RESP 19; TEMP 37.1; O2SAT 96
--- NOTE | 2020-06-02 09:04 | P.DS_ITS ---
History of Present Illness History of Present Illness Date Patient Seen: 06/02/20 Time Patient Seen: 09:04 Chief complaint: GI bleed Narrative: This pleasant 69-year-old female is followed by nurse practitioners at our clinic and this is the 1st time that I am seeing her. She presents to the clinic urgently with complaints of dizziness and racing pulse. She initially had called thinking that she had a ear infection but then revealed that whenever she stands up she gets weak in her knees and feels like she is going to fall down or pass out and in fact gets presyncope with having tunnel vision. She then develops a racing heart and starts sweating with really minimal activity. She has had no appetite eating very little her stomach feels full and she feels queasy. She has not had diarrhea but she has had 3-4 stools a day that are black tar the wooziness made her think that she had your infection she has a problem with her muscle in her neck and at refers pain to this but she has had that for years. She takes Aleve on a regular basis sometimes takes it daily for arthritic pain. She does not drink alcohol. She drinks 1 cup of coffee a day and no soda. She really has not been eating much since Wednesday she has just been forcing herself to eat her blood sugars have been in the 90s fasting and after meals 127-175. She has not had fevers chills or cough. She has not had any abdominal pain but just feels bloating and feels that her upper stomach feels weird or C6. She has not had bright red blood per rectum she has not had fito tochezia. She states that it all started Wednesday night when she went to nutritional services cook and was unable to stand up BKA she felt like she was going to pass out that her knees were wobbly and then she became diaphoretic and felt everything will go black if she did not sit down and then she just could not get back up. She then noticed the following day on May 28 that her stools were loose in look like tar they were just really black. It has persisted this way. She denies chest pain, cough, palpitations. She does get dyspneic with any exertion. {from Dr. Oliva's H&P 05/30/20} Discharge Providers Provider Date of admission: 05/30/20 10:59 Discharge Date: 06/02/20 Primary care physician: GALA Burton Consults: 05/30/20 11:08 Consult to General Surgery Routine Comment: Consulting Provider: Christ Torres Reason for consultation: GI BLEED Discharge provider: Hakeem Martin MD Summary Hospital Course Discharge Diagnosis: 1. Acute blood loss anemia 2. Duodenal ulcer with evidence of recent bleeding 3. Diabetes type 2 uncomplicated 4. Mixed hyperlipidemia 5. DJD spine 6. Obesity with BMI 36.7 7. Acute hypokalemia Hospital Course: Patient was admitted to the hospital symptoms as above. She was evaluated and had upper endoscopy performed which showed a deep posterior ulcer with adherent clot in the duodenum as well as a superficial ulcer in the anterior wall of the duodenum. The posterior wall ulcer was injected with epinephrine. There is no evidence of active bleeding following this. Patient's hemoglobin and hematocrit were acceptable initially but dropped dramatically within the 1st 24 hours but remained stable. She patient became symptomatic from her anemia and while her numbers remain stable was felt in an effort to improve her symptoms as well as provide some risk reduction the setting of recurrent duodenal ulcer bleeding she was transfused with 2 units of packed red blood cells. With this her hemoglobin and hematocrit rebounded nicely Patient's diabetes was not an active issue during this hospitalization Patient was quite miserable with her anemia with headache and generalized sense of achiness everywhere. This improved significantly with transfusion and upon discharge. However patient was quite unhappy with the food she was being served as well as overall feeling generally miserable when she says she came to the hospital she was in good shape and she seems to be worse now. She basically demanded to leave morning of discharge. She was agreeable to having a prescription sent for omeprazole to treat her ulcer as well as Biaxin and Flagyl to treat possible H pylori. At her request she was also prescribed an oral antifungal for an oral thrush which she tends to get when she takes antibiotics as well as a vaginal yeast infection which also seems to occur she says She will need close follow-up as an outpatient at [facility] Status at Discharge Cognitive/behavioral status at discharge: oriented Functional status at discharge: independent ambulation Overall status at discharge: patient is progressing back to baseline Time Spent with Patient Time spent: Less than 30 minutes Exam Vital Signs (past 8 hours): - 06/02/20 05:27 06/02/20 07:37 Temperature 97.8 F 98.7 F Pulse Rate 83 80 Respiratory Rate 16 19 Blood Pressure 130/62 135/64 Pulse Oximetry 95 96 Oxygen Delivery Method Room Air Oxygen Flow Rate 0 Narrative Exam Narrative: HEENT-unremarkable, normocephalic atraumatic Neck-no lymphadenopathy no bruits Lungs-clear anteriorly and posteriorly no wheezes no crackles good breath sounds Heart-regular rate and rhythm, no murmur, rub, or gallop. normal S1-S2 Abdomen-positive bowel tones, soft, nontender, nondistended, no hepatosplenomegaly, no masses palpable Neuro-normal to screening exam, gait not tested Extremities-no cyanosis clubbing or edema Objective Labs Result Diagrams: 06/02/20 05:13 06/01/20 05:01 Labs: Laboratory Results - last 24 hr 05/30/20 06/01/20 06/02/20 11:26 18:54 05:13 Hgb 11.4 L 10.9 L Hct 33.4 L 31.5 L Blood Type O Positive Antibody Screen Negative Crossmatch See Detail Discharge Assessment & Plan Assessment and Plan Assessment: Patient will continue several weeks of b.i.d. proton pump inhibitor and completed 2 week course of Biaxin and metronidazole in addition for treatment of H pylori Patient will need serial hemoglobin hematocrit for monitoring for evidence of recurrent bleeding and likely will need repeat upper endoscopy to ensure complete healing Patient was also modestly hypokalemic during this hospitalization this was replaced orally but patient basically refuse medication and unable to complete assessment of this prior to patient's discharge. This need be follow-up as an outpatient as well Discharge Plan Discharge Plan Patient Disposition: Home Discharge orders & Medications Prescriptions: New clarithromycin 500 mg Tablet 500 mg PO BID Qty: 24 RF: 0 metronidazole 500 mg Tablet 500 mg PO TID Qty: 36 RF: 0 omeprazole 40 mg capsule,delayed release(DR/EC) 40 mg PO BID Qty: 60 RF: 0 fluconazole [Diflucan] 150 mg tablet 150 mg PO NOW Qty: 2 RF: 0 nystatin 100,000 unit/mL suspension 500,000 unit PO TID Qty: 480 RF: 1 Continued simvastatin 40 mg tablet 20 mg PO BEDTIME RF: 0 Follow up/Referrals: Cecilia Oliva MD [Physician] - 1 Week (Patient to be instructed about making Appointment with Dr. Oliva.) Discharge Health Status Multidrug resistant organism: No MDRO Diet/Activity/Treatments Diet: Carb-consistent/Diabetic Diet comment: bland, low acid/spicy Visit Report/Discharge Packet Instructions: DI for Gastroesophageal Reflux Disease (GERD), DI for Gastritis, DI for Gastric Ulcer, DI for Hiatal Hernia, DI for Stomach Polyps Visit Report Forms: Patient Portal/API, Stroke Signs & Symptoms Discharge Data Primary Care Provider: Blanca Grossman Discharges patient from system. Discharge Date/Time: 06/02/20 10:59 Quality VTE Deep Vein Thrombosis/Pulmonary Embolism Present on Admission: No
--- NOTE | 2020-06-02 09:38 | PC.NURSE ---
Patient is angry about everything and being here. has discharged her and she will be going home around 1030, her brother will be by to pick her up. Patient has been rude and short with staff and refusing everything. She refused her blood sugar checked and her medication. Tele and iv have been removed and taken out.
== END 2020-06-02 10:59 | disposition home or self-care (01) | DRG 378 ==
PROVIDERS: Internal Medicine; Specialist; Student in an Organized Health Care Education/Training Program; Admitting Provider Family Medicine; PCP Nurse Practitioner Family; Referring Provider Family Medicine; Visit Provider Family Medicine
PROC: 0DJ08ZZ Inspection of Upper Intestinal Tract, Via Natural or Artificial Opening Endoscopic (ICD-10-PCS; CPT 43235; principal; 2020-05-30 15:00)
DX: K26.4 Chronic or unspecified duodenal ulcer with hemorrhage (principal); D62 Acute posthemorrhagic anemia; I95.9 Hypotension, unspecified; E11.9 Type 2 diabetes mellitus without complications; E78.5 Hyperlipidemia, unspecified; E66.9 Obesity, unspecified; M47.9 Spondylosis, unspecified; Z68.36 Body mass index [BMI] 36.0-36.9, adult; Z11.59 Encounter for screening for other viral diseases; E87.6 Hypokalemia
CPT/HCPCS: 36415; 36430; 71046; 80048; 80053; 82150; 82962; 83690; 84443; 85014; 85018; 85025; 85610; 85730; 86850; 86900; 86901; 87635; P9016; C9113; J0171; J1940; J2250; J3010

== ENCOUNTER → 2022-03-04 11:13 | Outpatient (CLI) | payer MEDICARE, OTHER, SELFPAY ==
[2020-05-30 12:24] VITALS: BMI 35.5
[2022-03-04 13:01] LABS: COVID19 -Nasal RAPID Negative (Negative)
== END ==
PROVIDERS: PCP Nurse Practitioner Family; Visit Provider Family Medicine Sleep Medicine
DX: Z20.822 Contact with and (suspected) exposure to COVID-19 (principal)
CPT/HCPCS: 87635; C9803

== ENCOUNTER 2022-12-07 08:29 | Observation (INO) | payer MEDICARE, OTHER, SELFPAY ==
[2020-05-30 12:24] VITALS: BMI 35.5
[2022-12-07] VITALS (31 sets, daily range): BP systolic 94–182; BP diastolic 45–90; PULSE 60–108; RESP 15–24; TEMP 36.2–36.8; O2SAT 81–98; BMI 32.5
--- NOTE | 2022-12-07 | PATH_ITS ---
[facility] Accession Number: [id number] No. of containers..01 Tissue . 01 Material submitted: . gallbladder - GALLBLADDER . 01 Clinical history: . CHILLS/PAIN LT ABD/N T-1 . 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 Cystic duct margin negative for dysplasia. Negative for high-grade dysplasia or malignancy. MRV 12/11/2022 1529 Local . 01 Comment: As part of routine quality improvement coordinator, Dr. Bassett has reviewed this case and agrees with the diagnosis of low-grade glandular dysplasia. The finding of low-grade glandular dysplasia was reported to Dr. Ta via DAYAN Vega by on 12/11/2022. . 01 Electronically signed: . Suhas Davis MD, PhD, Pathologist NPI- [id number] . 01 Gross description: . The specimen is received in formalin labeled with the patient's name, , and gallbladder, and consists of an intact gallbladder measuring 9.7 x 4.6 x 2.5 cm with congested smooth serosa and a roughened unremarkable hepatic surface. The cystic duct is received closed with a clamp, is inked blue, and no pericystic lymph node is identified. The lumen contains a small amount dark gren to brown mucoid bile and a single red-brown roughened calculus measuring 2.4 cm in greatest dimension not grossly obstructing the cystic duct. The mucosa is green, velvety, and diffusely roughened with no pinpoint yellow areas, polyps, or lesions identified. The wall average 0.3 cm thick. Instrument Technician sections to include the cystic duct margin and full thickness sections are submitted in cassette A1. ([id number]) /JOSIE 12/09/2022 1049 Local . 01 Pathologist provided ICD-10: K80.60, K81.2, K82.9 . 01 CPT . 246225 Specimen Comment: A courtesy copy of this report has been sent to [phone] Performed at: 01 [facility] [address] [place] [address], [place], [place] [id number] MD Taran Hairston MD Phone: [phone]
--- NOTE | 2022-12-07 09:14 | ED.GENADULT ---
HPI - General Adult General Chief complaint: Abdominal Pain Stated complaint: chills/pain LT ABD/N T-1 Time Seen by Provider: 12/07/22 08:52 Source: patient Mode of arrival: Ambulatory Limitations: no limitations History of Present Illness HPI narrative: Patient is a 72-year-old female who last evening started to get right upper quadrant pain and left upper back pain. She stated that it continued all night. She did have nausea vomiting. The pain has not changed since last evening. States she urinated frequently last evening and now this morning is having problems urinating. No diarrhea. No fevers. She is had a hysterectomy but no other abdominal surgeries. He did take Gas-X prior to arrival without any change in her symptoms. Denies chest pain, no shortness of breath. Related Data Home Medications Medication Instructions Recorded Confirmed simvastatin 40 mg tablet 20 mg PO BEDTIME 05/30/20 05/30/20 Previous Rx's Medication Instructions Recorded clarithromycin 500 mg tablet 500 mg PO BID #24 tabs 06/01/20 metronidazole 500 mg tablet 500 mg PO TID #36 tabs 06/01/20 omeprazole 40 mg capsule,delayed 40 mg PO BID #60 caps 06/01/20 release fluconazole 150 mg tablet 150 mg PO NOW #2 tabs 06/02/20 (Diflucan) nystatin 100,000 unit/mL oral 500,000 unit (5 mL) PO TID #480 mL 06/02/20 suspension Allergies Allergy/AdvReac Type Severity Reaction Status Date / Time latex AdvReac Rash Verified 12/07/22 13:50 Penicillins AdvReac Nausea Verified 12/07/22 13:50 raw vegetable AdvReac Rash Verified 12/07/22 13:50 shellfish derived AdvReac Rash Verified 12/07/22 13:50 Review of Systems Constitutional Constitutional: Reports system reviewed and no additional complaints, except as documented Cardiovascular Cardiovascular: Reports system reviewed and no additional complaints, except as documented Respiratory Respiratory: Reports system reviewed and no additional complaints, except as documented Gastrointestinal Gastrointestinal: Reports system reviewed and no additional complaints, except as documented Genitourinary Genitourinary: Reports system reviewed and no additional complaints, except as documented Integumentary/Breasts Skin/Breast: Reports system reviewed and no additional complaints, except as documented Neurologic Neurologic: Reports system reviewed and no additional complaints, except as documented Hematologic/Lymphatic On Anticoagulants: No Patient History Medical History BMI 36.0-36.9,adult Diabetes mellitus (~2018) DJD (degenerative joint disease) Hyperlipidemia Skin cancer Type 2 diabetes, diet controlled Surgical History History of hysterectomy for cancer (~1997) S/P hip replacement (~2002) S/P hip replacement (~1997) Social History household members: family and none Smoking Status: Never smoker alcohol intake: never eating out: rarely or never Type(s) of exercise: walking Smoking Status: Never smoker Substance Use Type: marijuana Exam Initial Vital Signs Initial Vital Signs: Vital Signs Temperature 97.4 F L 12/07/22 08:35 Pulse Rate 84 12/07/22 08:35 Respiratory Rate 18 12/07/22 08:35 Blood Pressure 182/85 H 12/07/22 08:35 Pulse Oximetry 96 12/07/22 08:35 Oxygen Delivery Method 12/07/22 08:35 Const General: cooperative, comfortable and No ill appearing HENMT Head: normal to inspection and normocephalic Resp Effort & Inspection: normal respiratory effort Auscultation: clear to auscultation bilaterally Cardio Rate: regular rate Rhythm: regular rhythm GI Inspection: normal to inspection Palpation: tender (Right upper quadrant) Back/Spine/Pelvis Back: No CVA tenderness Skin General: no rashes or lesions noted Extrem General: normal to inspection and capillary refill normal Course Orders Ordered: ED Orders 12/07/22 09:17 US abdomen limited Stat 12/07/22 09:20 Complete Blood Count AUTO DIFF Stat Comprehensive Metabolic Panel Stat Lipase Stat 12/07/22 10:14 COVID19 -Nasal RAPID/Pre-Proc Stat 12/07/22 11:08 CT abdomen pelvis w con Stat Acetaminophen (Acetaminophen 325 Mg Tablet) 650 mg PO Q6H PRN PRN Reason: Fever/Mild Pain (1-3) Hydrocodone Bitart/Acetaminophen (Hydrocodone/Acet 5/325 Tablet) 1 tab PO Q4H PRN PRN Reason: Pain, Moderate (4-6) Hydrocodone Bitart/Acetaminophen (Hydrocodone/Acet 5/325 Tablet) 2 tab PO Q4H PRN PRN Reason: Pain, Severe (7-10) Hydromorphone HCl (Hydromorphone 0.5 Mg Inj) 0.5 mg IV Q2H PRN PRN Reason: Pain, Severe (7-10) Last Admin: 12/07/22 12:54 Dose: 0.5 mg Documented By: ADRIANA Lactated Ringer's (Lactated Ringers) 1,000 mls @ 100 mls/hr IV CONT MANDO Last Admin: 12/07/22 14:15 Dose: 100 mls/hr Documented By: AILYN Ibuprofen (Ibuprofen 600 Mg Tablet) 600 mg PO Q6H PRN PRN Reason: Fever/Mild Pain (1-3) Naloxone HCl (Naloxone 0.4 Mg/Ml Vial) 0.2 mg IV Q2MIN PRN PRN Reason: Opiate Reversal Ondansetron HCl (Ondansetron 4 Mg/2 Ml Inj) 4 mg IV Q8HR PRN PRN Reason: Nausea And Vomiting Discontinued Medications Sodium Chloride (Normal Saline 0.9%) 1,000 mls @ 1,000 mls/hr IV BOLUS ONE Stop: 12/07/22 09:52 Last Infusion: 12/07/22 10:15 Dose: 0 mls/hr Documented By: Admin: 12/07/22 09:25 Dose: 1,000 mls/hr Documented By: ADRIANA Cefazolin Sodium/Dextrose (Ancef) 100 mls @ 200 mls/hr IV NOW ONE Stop: 12/07/22 12:51 Last Admin: 12/07/22 14:14 Dose: 200 mls/hr Documented By: AILYN Morphine Sulfate (Morphine 4 Mg/Ml Inj) 4 mg IV NOW ONE Stop: 12/07/22 10:49 Last Admin: 12/07/22 10:58 Dose: 4 mg Documented By: ADRIANA Vital Signs Vital signs: Vital Signs - 8 hr 12/07/22 08:35 12/07/22 08:37 12/07/22 08:38 Temperature 97.4 F L Pulse Rate 84 87 91 H Respiratory Rate 18 Blood Pressure 182/85 H Pulse Oximetry 96 95 Oxygen Delivery Method Room Air 12/07/22 08:38 12/07/22 09:13 12/07/22 09:14 Temperature Pulse Rate 73 75 Respiratory Rate 18 Blood Pressure 182/85 H Pulse Oximetry 96 97 Oxygen Delivery Method 12/07/22 09:14 12/07/22 09:30 12/07/22 09:30 Temperature Pulse Rate 61 Respiratory Rate 18 Blood Pressure 145/61 H 146/66 H Pulse Oximetry 98 Oxygen Delivery Method 12/07/22 10:00 12/07/22 10:00 12/07/22 10:30 Temperature Pulse Rate 61 Respiratory Rate 18 Blood Pressure 136/90 157/65 H Pulse Oximetry 98 Oxygen Delivery Method 12/07/22 10:30 12/07/22 11:00 12/07/22 11:00 Temperature Pulse Rate 60 71 Respiratory Rate 18 22 Blood Pressure 131/60 Pulse Oximetry 98 93 Oxygen Delivery Method 12/07/22 11:28 12/07/22 11:28 12/07/22 11:30 Temperature Pulse Rate 67 Respiratory Rate 18 Blood Pressure 136/60 134/64 Pulse Oximetry 98 Oxygen Delivery Method 12/07/22 11:30 Temperature Pulse Rate 65 Respiratory Rate 22 Blood Pressure Pulse Oximetry 95 Oxygen Delivery Method Medical Decision Making Lab Data Lab results reviewed: Yes I reviewed the patient's lab results. 12/07/22 09:20 12/07/22 09:20 Labs: Lab Results 12/07/22 12/07/22 12/07/22 Range/Units 09:20 09:20 10:14 WBC 18.4 H (4.5-11.0) X10^3/uL RBC 4.59 (4.0-5.2) X10^6/uL Hgb 13.8 (12.0-16.0) g/dL Hct 40.9 (36-46) % MCV 89.1 (80-100) fL MCH 30.0 (26-34) PG MCHC 33.7 (30-36) % RDW 14.3 (11.6-14.8) % Plt Count 370 (150-400) X10^3/uL Neut % (Auto) 89.1 H (50-75) % Lymph % (Auto) 5.4 L (25-40) % [place] % (Auto) 5.0 (3-14) % Eos % (Auto) 0.1 L (2-4) % Baso % (Auto) 0.4 (0-2) % Neut # (Auto) 17939 H (5777-3878) /uL Lymph # (Auto) 1000 L (1258-0591) /uL [place] # (Auto) 900 (0-900) /uL Eos # (Auto) 0 (0-450) /uL Baso # (Auto) 100 (0-100) /uL Sodium 134 L (137-145) mmol/L Potassium 3.8 (3.4-5.1) mmol/L Chloride 97 L (98-107) mmol/L Carbon Dioxide 24 (22-32) mmol/L BUN 13 (7-17) mg/dL Creatinine 0.70 (0.52-1.04) mg/dL Estimated GFR > 60 (>60) mL/min BUN/Creatinine Ratio 18.6 (6-22) Glucose 157 H (80-110) mg/dL Calcium 9.6 (8.4-10.2) mg/dL Total Bilirubin 0.6 (0.2-1.3) mg/dL AST 32 (14-36) IU/L ALT 40 H (<35) IU/L Alkaline Phosphatase 155 H (38-126) U/L Total Protein 7.9 (6.3-8.2) g/dL Albumin 4.4 (3.5-5.0) g/dL Globulin 3.5 (1.7-4.1) g/dL Albumin/Globulin Ratio 1.3 (1.0-2.8) Lipase 88 (23-300) U/L SARS-CoV-2 (PCR) Negative (Negative) Imaging Data US - abdomen: Radiologist's Impression: PROCEDURE: US ABDOMEN LIMITED ? INDICATIONS:? RIGHT UPPER QUADRANT PAIN ? TECHNIQUE:? Real-time focused scanning was performed of the abdomen, with image documentation.? ? COMPARISON:? None. ? FINDINGS:? The liver demonstrates normal size. The liver demonstrates generalized mildly increased echogenicity. This decreases ultrasound sensitivity for detection of hepatic masses.? Several punctate echogenic foci can be seen throughout the liver parenchyma. ? The gallbladder is enlarged measuring 11.6 x 5.9 x 5.9 cm. A shadowing, non mobile gallstone can be seen that measures up to 2.6 cm.? The gallbladder wall is not thickened, measuring 3 mm or less.? No specific pericholecystic fluid is seen.? The sonographic Carnes sign is positive. ? The biliary system is not well seen. ? No significant pancreatic abnormality is seen on these images.? ? This study is limited by body habitus and overlying bowel gas.? This study is further limited by the patient's inability to tolerate normal probe pressures.? ? ? IMPRESSION:? Hydropic gallbladder, with a non mobile 2.6 cm stone seen within the neck of the gallbladder.? There is a positive sonographic Carnes sign.? No definite additional sonographic signs of cholecystitis can be seen, however. ? Mildly increased liver echogenicity seen, which is attributed to fatty infiltration. ? ? ? Additional findings:? Likely calcified granulomas of the liver. CT scan - abdomen/pelvis: Radiologist's Impression: PROCEDURE:? CT ABDOMEN PELVIS W CON ? INDICATIONS:? Right-sided abdominal pain ? TECHNIQUE:? After the administration of intravenous contrast, axial sections acquired from the lung bases to the pubic symphysis.? Coronal and sagittal reformats were performed.? For radiation dose reduction, the following was used:? automated exposure control, adjustment of mA and/or kV according to patient size.? ? COMPARISON:? None. ? FINDINGS:? Image quality:? Excellent.? ? Lung bases:? Unremarkable. Heart:? No significant findings. ? ABDOMEN: Liver:? Unremarkable.? ? Gallbladder:? Gallbladder is distended.? There is a faintly calcified gallstone present in the gallbladder.? There is minimal inflammatory change in the surrounding fat.? There is mild prominence of the gallbladder wall. Biliary ducts:? Unremarkable.? ? Pancreas:? Unremarkable.? ? Spleen:? Unremarkable.? ? Adrenal Glands:? Unremarkable.? ? Kidneys and Ureters:? Unremarkable.? ? ? Stomach and Bowel:? Mild sigmoid diverticulosis.? No dilated loops.? Large fecal debris in the cecum. Peritoneum:? No abnormal intraperitoneal fluid.? No free air.? ? Ventral Wall: ? No hernias.? Abdominal Nodes:? No retroperitoneal or mesenteric adenopathy by size criteria.? Vessels:? Aorta and inferior vena cava are normal in size.? ? PELVIS: Pelvic Organs:? Uterus is surgically absent.? ? Bladder:? Unremarkable.? ? Pelvic Nodes: No enlarged lymph nodes.? Miscellaneous: No hernias are seen. ? ? ? Bones:? Bilateral total hip arthroplasties with significant metal artifact in the lower pelvis.? No lytic or blastic bony lesions.? No compression fractures. ? ? IMPRESSION:? ? 1. Gallbladder findings may potentially indicate acute cholecystitis.? Consider right upper quadrant ultrasound for further evaluation. ? 2. Large amount of fecal debris in the cecum, also possible cause of right abdominal pain.? MDM Narrative Medical decision making narrative: Patient does have a leukocytosis. Has right upper quadrant pain with a positive Carnes's sign. Right upper quadrant ultrasound does show cholelithiasis but is not definitive for acute cholecystitis. CT scan of the abdomen and pelvis is more definitive for acute cholecystitis. Discussed the case with Dr. Ta with general surgery who will admit for further evaluation and treatment. I did discuss the findings of the workup here in the emergency department with the patient who expressed understanding and agreement. Antibiotics ordered. Discharge Plan Departure Patient Disposition: Admitted As Inpatient Clinical Impression: Acute cholecystitis Admit Date/Time: 12/07/22 11:59 Admit Provider: Clayton Ta
--- NOTE | 2022-12-07 09:17 | DI.US.S_ITS ---
PROCEDURE: US ABDOMEN LIMITED INDICATIONS: RIGHT UPPER QUADRANT PAIN TECHNIQUE: Real-time focused scanning was performed of the abdomen, with image documentation. COMPARISON: None. FINDINGS: The liver demonstrates normal size. The liver demonstrates generalized mildly increased echogenicity. This decreases ultrasound sensitivity for detection of hepatic masses. Several punctate echogenic foci can be seen throughout the liver parenchyma. The gallbladder is enlarged measuring 11.6 x 5.9 x 5.9 cm. A shadowing, non mobile gallstone can be seen that measures up to 2.6 cm. The gallbladder wall is not thickened, measuring 3 mm or less. No specific pericholecystic fluid is seen. The sonographic Carnes sign is positive. The biliary system is not well seen. No significant pancreatic abnormality is seen on these images. This study is limited by body habitus and overlying bowel gas. This study is further limited by the patient's inability to tolerate normal probe pressures. IMPRESSION: Hydropic gallbladder, with a non mobile 2.6 cm stone seen within the neck of the gallbladder. There is a positive sonographic Carnes sign. No definite additional sonographic signs of cholecystitis can be seen, however. Mildly increased liver echogenicity seen, which is attributed to fatty infiltration. Additional findings: Likely calcified granulomas of the liver. Dictated by: Leon Polanco M.D. on 12/07/2022 at 9:38 Approved by: Leon Polanco M.D. on 12/07/2022 at 9:41
[2022-12-07] MEDS: SODIUM CHLORIDE 0.9% 1,000 ML 1000 ML IV (09:25)
[2022-12-07 09:33] LABS: Add Manual Diff / Slide Review NO; Basophils Absolute Auto 100 /uL (0-100); Basophils Percent Auto 0.4 % (0-2); Eosinophils Absolute Auto 0 /uL (0-450); Eosinophils Percent Auto 0.1 % (2-4); Hematocrit 40.9 % (36-46); Hemoglobin 13.8 g/dL (12.0-16.0); Lymphocytes Absolute Auto 1000 /uL (1100-4500); Lymphocytes Percent Auto 5.4 % (25-40); Mean Corpuscular HGB Conc 33.7 % (30-36); Mean Corpuscular Volume 89.1 fL (80-100); Monocytes Absolute Auto 900 /uL (0-900); Neutrophils Absolute Auto 16400 /uL (1500-7000); Neutrophils Percent Auto 89.1 % (50-75); Platelet Count 370 X10^3/uL (150-400); Red Blood Cell Count 4.59 X10^6/uL (4.0-5.2); Red Cell Distribution Width 14.3 % (11.6-14.8); White Blood Cell Count 18.4 X10^3/uL (4.5-11.0)
[2022-12-07 09:52] LABS: Alanine Aminotransferase 40 IU/L (<35); Albumin 4.4 g/dL (3.5-5.0); Albumin Globulin Ratio 1.3 (1.0-2.8); Alkaline Phosphatase 155 U/L (38-126); Aspartate Aminotransferase 32 IU/L (14-36); BUN Creatinine Ratio 18.6 (6-22); Bilirubin Total 0.6 mg/dL (0.2-1.3); Blood Urea Nitrogen 13 mg/dL (7-17); Calcium 9.6 mg/dL (8.4-10.2); Carbon Dioxide 24 mmol/L (22-32); Chloride 97 mmol/L (98-107); Estimated Glomerular Filt Rate > 60 mL/min (>60); Globulin 3.5 g/dL (1.7-4.1); Glucose 157 mg/dL (80-110); HEMOLYSIS < 15 (0-50); Lipase 88 U/L (23-300); Potassium 3.8 mmol/L (3.4-5.1); Sodium 134 mmol/L (137-145); Total Protein 7.9 g/dL (6.3-8.2)
--- NOTE | 2022-12-07 10:31 | PC.NURSE ---
Teodoro will be ride today 12/07/22 if needed phone [phone]
[2022-12-07 10:37] LABS: COVID19 -Nasal RAPID Negative (Negative)
[2022-12-07] MEDS: MORPHINE 4 MG/ML INJ IV (10:58)
--- NOTE | 2022-12-07 11:08 | DI.CT.S_ITS ---
PROCEDURE: CT ABDOMEN PELVIS W CON INDICATIONS: Right-sided abdominal pain TECHNIQUE: After the administration of intravenous contrast, axial sections acquired from the lung bases to the pubic symphysis. Coronal and sagittal reformats were performed. For radiation dose reduction, the following was used: automated exposure control, adjustment of mA and/or kV according to patient size. COMPARISON: None. FINDINGS: Image quality: Excellent. Lung bases: Unremarkable. Heart: No significant findings. ABDOMEN: Liver: Unremarkable. Gallbladder: Gallbladder is distended. There is a faintly calcified gallstone present in the gallbladder. There is minimal inflammatory change in the surrounding fat. There is mild prominence of the gallbladder wall. Biliary ducts: Unremarkable. Pancreas: Unremarkable. Spleen: Unremarkable. Adrenal Glands: Unremarkable. Kidneys and Ureters: Unremarkable. Stomach and Bowel: Mild sigmoid diverticulosis. No dilated loops. Large fecal debris in the cecum. Peritoneum: No abnormal intraperitoneal fluid. No free air. Ventral Wall: No hernias. Abdominal Nodes: No retroperitoneal or mesenteric adenopathy by size criteria. Vessels: Aorta and inferior vena cava are normal in size. PELVIS: Pelvic Organs: Uterus is surgically absent. Bladder: Unremarkable. Pelvic Nodes: No enlarged lymph nodes. Miscellaneous: No hernias are seen. Bones: Bilateral total hip arthroplasties with significant metal artifact in the lower pelvis. No lytic or blastic bony lesions. No compression fractures. IMPRESSION: 1. Gallbladder findings may potentially indicate acute cholecystitis. Consider right upper quadrant ultrasound for further evaluation. 2. Large amount of fecal debris in the cecum, also possible cause of right abdominal pain. Dictated by: Paddy Polo M.D. on 12/07/2022 at 11:45 Approved by: Paddy Polo M.D. on 12/07/2022 at 11:48
--- NOTE | 2022-12-07 12:17 | PM.HP.1 ---
History of Present Illness History of Present Illness Date Patient Seen: 12/07/22 Time Patient Seen: 12:17 Chief complaint: chills/pain LT ABD/N T-1 Narrative: Niru is a 72-year-old woman who presents with right upper quadrant pain, nausea and vomiting starting at 7:00 p.m. last night. She has never had similar pain in the past. CT scan and ultrasound show a distended gallbladder and cholelithiasis. She has not eaten anything today. She does not take blood thinners. Patient History Medical History BMI 36.0-36.9,adult Diabetes mellitus (~2018) DJD (degenerative joint disease) Hyperlipidemia Skin cancer Type 2 diabetes, diet controlled Surgical History History of hysterectomy for cancer (~1997) S/P hip replacement (~2002) S/P hip replacement (~1997) Family & Social History Social History: household members family,none Safety & Behavioral: Feels Safe in Current Yes Environment Been Physically Hurt or No Threatened By a Person Tobacco & Substance use: Smoking Status Never smoker alcohol intake never Substance Use Type marijuana Meds Home Medications and Allergies Home Medications Medication Instructions Recorded Confirmed Type simvastatin 40 mg tablet 20 mg PO BEDTIME 05/30/20 05/30/20 History clarithromycin 500 mg tablet 500 mg PO BID #24 tabs 06/01/20 Rx metronidazole 500 mg tablet 500 mg PO TID #36 tabs 06/01/20 Rx omeprazole 40 mg capsule,delayed 40 mg PO BID #60 caps 06/01/20 Rx release fluconazole 150 mg tablet 150 mg PO NOW #2 tabs 06/02/20 Rx (Diflucan) nystatin 100,000 unit/mL oral 500,000 unit (5 mL) PO TID #480 mL 06/02/20 Rx suspension Allergies Allergy/AdvReac Type Severity Reaction Status Date / Time latex AdvReac Rash Verified 05/30/20 12:48 Penicillins AdvReac Nausea Verified 05/30/20 12:48 raw vegetable AdvReac Rash Verified 05/30/20 12:48 shellfish derived AdvReac Rash Verified 05/30/20 12:49 Exam Vital Signs (past 8 hours): - 12/07/22 08:35 12/07/22 08:37 12/07/22 08:38 Temperature 97.4 F L Pulse Rate 84 87 91 H Respiratory Rate 18 Blood Pressure 182/85 H Pulse Oximetry 96 95 Oxygen Delivery Method Room Air 12/07/22 08:38 12/07/22 09:13 12/07/22 09:14 Temperature Pulse Rate 73 75 Respiratory Rate 18 Blood Pressure 182/85 H Pulse Oximetry 96 97 Oxygen Delivery Method 12/07/22 09:14 12/07/22 09:30 12/07/22 09:30 Temperature Pulse Rate 61 Respiratory Rate 18 Blood Pressure 145/61 H 146/66 H Pulse Oximetry 98 Oxygen Delivery Method 12/07/22 10:00 12/07/22 10:00 12/07/22 10:30 Temperature Pulse Rate 61 Respiratory Rate 18 Blood Pressure 136/90 157/65 H Pulse Oximetry 98 Oxygen Delivery Method 12/07/22 10:30 12/07/22 11:00 12/07/22 11:00 Temperature Pulse Rate 60 71 Respiratory Rate 18 22 Blood Pressure 131/60 Pulse Oximetry 98 93 Oxygen Delivery Method Oxygen Delivery Method Room Air Narrative Exam Narrative: Tender to palpation in the right upper quadrant and a positive Carnes sign Objective Labs 12/07/22 09:20 12/07/22 09:20 Labs: Laboratory Results - last 24 hr 12/07/22 12/07/22 12/07/22 09:20 09:20 10:14 WBC 18.4 H RBC 4.59 Hgb 13.8 Hct 40.9 MCV 89.1 MCH 30.0 MCHC 33.7 RDW 14.3 Plt Count 370 Neut % (Auto) 89.1 H Lymph % (Auto) 5.4 L [place] % (Auto) 5.0 Eos % (Auto) 0.1 L Baso % (Auto) 0.4 Neut # (Auto) 49617 H Lymph # (Auto) 1000 L [place] # (Auto) 900 Eos # (Auto) 0 Baso # (Auto) 100 Sodium 134 L Potassium 3.8 Chloride 97 L Carbon Dioxide 24 BUN 13 Creatinine 0.70 Estimated GFR > 60 BUN/Creatinine Ratio 18.6 Glucose 157 H Calcium 9.6 Total Bilirubin 0.6 AST 32 ALT 40 H Alkaline Phosphatase 155 H Total Protein 7.9 Albumin 4.4 Globulin 3.5 Albumin/Globulin Ratio 1.3 Lipase 88 SARS-CoV-2 (PCR) Negative Assessment & Plan Assessment and plan (1) Acute cholecystitis: Status: Acute Plan Niru is a 72-year-old woman with acute cholecystitis. We discussed the risks and benefits of laparoscopic cholecystectomy with intraoperative cholangiogram and she would like to proceed. Time Spent With Patient Critical Care time: I spent a total of [] minutes of critical care time on this patient's care today; this time is exclusive of procedural time.
[2022-12-07] MEDS: HYDROMORPHONE 0.5 MG INJ IV (12:54)
[2022-12-07] MEDS: CEFAZOLIN 2 GM/100 ML PREMIX 100 ML IV (14:14)
[2022-12-07] MEDS: LACTATED RINGERS 1,000 ML 100 ML IV ×2 (14:15→16:09)
[2022-12-07] MEDS: BUPIVACAINE 0.25% (PF) VIAL 30 ML INJ (15:36)
[2022-12-07 15:52] LABS: Appearance Urine UA CLEAR; Bilirubin Urine UA NEGATIVE (NEGATIVE); Color Urine UA YELLOW; Glucose Urine UA NEGATIVE (Negative); Ketones Urine UA NEGATIVE (NEGATIVE); Leukocyte Esterase Urine UA NEGATIVE (NEGATIVE); Nitrite Urine UA NEGATIVE (Negative); Occult Blood Urine UA TRACE-INTACT (Negative); Protein Urine UA NEGATIVE (Negative); Urobilinogen Urine UA 0.2 E.U./dL (0.2)
--- NOTE | 2022-12-07 15:53 | SUR.OPER ---
Supine on padded OR bed, head on pillow, safety belt at thigh, left arm padded and tucked at side. Right arm secured on padded arm board <90 degrees abduction. Legs uncrossed. Padded footboard in place. Tape over blanket to secure lower legs.
[2022-12-07 16:06] LABS: Bacteria Urine Few (2-10); Culture Indicated Urine Cult Not Indicated; RBC Urine None Seen (0-5/HPF); Squamous Epithelial Cell Urine 0-1 /HPF (0-5/HPF); WBC Urine None Seen (0-5/HPF)
--- NOTE | 2022-12-07 16:26 | PM.OP.1 ---
Operative Date/Time/Diagnoses Date of procedure: 12/07/22 Time of procedure: 16:27 Pre-op diagnosis: Acute cholecystitis Post-op diagnosis: same Procedure & Clinicians Procedure: Laparoscopic cholecystectomy Same procedure as scheduled: No Indications: Cholangiogram was not necessary as her anatomy was well seen Surgeon: Clayton Ta Anesthesia Type: General Operative Notes Procedure in detail: The patient was given preoperative antibiotic. The patient was brought to the operating room, placed on the table in the supine position. General endotracheal anesthesia was induced. The abdomen was prepped and draped. A time-out was performed. We made a 1 cm infraumbilical incision. We dissected down to the base of the umbilical stalk using cautery. We grasped the umbilical stalk with a Loni clamp to elevate the abdominal wall. We scored the fascia in the midline with cautery 1 cm. We pierced the peritoneum with a Peon clamp. The Kristopher port was placed and the abdomen was insufflated to 15 mmHg. A 5 mm 30 degree laparoscopic was inserted. There was no evidence of any injury from the entry. Next, we placed 5 mm ports in the subxiphoid position and right upper quadrant at the midclavicular line and anterior axillary line. Patient was then positioned in reverse Trendelenburg and the table was tilted to the left. The gallbladder was quite distended and tense and so approximately 60 mL of bile were aspirated with a large bore needle. The gallbladder was grasped at the dome and retracted cephalad. We then dissected the cystic structures with a combination of hook cautery and blunt dissection. We obtained a critical view. We placed clips on the cystic duct and artery and divided the cystic duct and artery sharply between the clips. The gallbladder was then dissected off the liver and placed in a specimen retrieval bag. We irrigated the right upper quadrant until all the aspirate returned clear. We then removed the 5 mm ports under direct vision we removed the Kristopher port. We then injected some local into the fascia and closed the fascia with 2 interrupted 0 Vicryl sutures. The skin incisions were closed with 4-0 Monocryl and Steri-Strips were applied. Band-Aids were applied over the Steri-Strips. EBL: 30 mL Specimen: Gallbladder Post-operative Condition: stable Disposition: PACU
[2022-12-07] MEDS: ATORVASTATIN 20 MG TABLET 10 MG PO (21:22)
[2022-12-08] VITALS: BP 107/53; PULSE 82; RESP 17; TEMP 36.4; O2SAT 94
[2022-12-08 04:00] VITALS: BP 98/54; PULSE 68; TEMP 36.4; O2SAT 94
[2022-12-08 05:59] LABS: Add Manual Diff / Slide Review NO; Basophils Absolute Auto 0 /uL (0-100); Basophils Percent Auto 0.1 % (0-2); Eosinophils Absolute Auto 0 /uL (0-450); Hematocrit 35.3 % (36-46); Hemoglobin 11.6 g/dL (12.0-16.0); Lymphocytes Absolute Auto 1600 /uL (1100-4500); Lymphocytes Percent Auto 10.2 % (25-40); Mean Corpuscular Hemoglobin 29.5 PG (26-34); Mean Corpuscular Volume 89.3 fL (80-100); Monocytes Absolute Auto 800 /uL (0-900); Monocytes Percent Auto 5.4 % (3-14); Neutrophils Absolute Auto 13000 /uL (1500-7000); Neutrophils Percent Auto 84.3 % (50-75); Platelet Count 309 X10^3/uL (150-400); Red Blood Cell Count 3.95 X10^6/uL (4.0-5.2); Red Cell Distribution Width 14.4 % (11.6-14.8); White Blood Cell Count 15.4 X10^3/uL (4.5-11.0)
[2022-12-08 06:11] LABS: Alanine Aminotransferase 64 IU/L (<35); Albumin 3.4 g/dL (3.5-5.0); Albumin Globulin Ratio 1.1 (1.0-2.8); Alkaline Phosphatase 99 U/L (38-126); Aspartate Aminotransferase 87 IU/L (14-36); BUN Creatinine Ratio 17.1 (6-22); Bilirubin Total 0.4 mg/dL (0.2-1.3); Blood Urea Nitrogen 12 mg/dL (7-17); Calcium 8.4 mg/dL (8.4-10.2); Carbon Dioxide 25 mmol/L (22-32); Chloride 98 mmol/L (98-107); Estimated Glomerular Filt Rate > 60 mL/min (>60); Glucose 118 mg/dL (80-110); HEMOLYSIS < 15 (0-50); Sodium 133 mmol/L (137-145); Total Protein 6.4 g/dL (6.3-8.2)
[2022-12-08 08:00] VITALS: BP 117/63; PULSE 68; RESP 17; TEMP 36.3; O2SAT 94
[2022-12-08] MEDS: DOCUSATE 100 MG CAPSULE PO (10:22)
[2022-12-08] MEDS: ACETAMINOPHEN 325 MG TABLET 650 MG PO (10:22)
[2022-12-08 11:00] VITALS: BP 118/60; PULSE 67; RESP 17; TEMP 36.7; O2SAT 96
--- NOTE | 2022-12-08 13:58 | CM.DANOTE ---
Initial DCP Assessment Note Pt is a 76 yo female, resident of [place], now POD#1 from Laparoscopic cholecystectomy by Dr Ta PCP: [facility] Payer: VERO/Krista Reviewed chart, pt discussed in multidisciplinary rounds this morning. Plan is for likely return home tonight vs tomorrow to the care of family. Patient is mostly indp at baseline, poor activity tolerance at times. No barriers identified at this time to patient's safe discharge home w/family to assist; close outpatient f/u recommended. HASEEB Vo Discharge Planning/Care Management CM Discharge Assessment Start: 12/08/22 13:54 Freq: Status: Active Protocol: Document 12/08/22 13:54 VEENA (Rec: 12/08/22 13:58 VEENA [id number]) Discharge Planning Assessment Assigned Unit Manager Rn HASEEB Desouza DPOA/Assigned Designee Name sister Posada Contact Information [phone] Advance Directives? No: has paperwork but has not filled it out. Advance Directives on File No History Provided By Patient,Medical Record Prior Living Arrangements House Household Members family,none Type of transportation used prior to Drives own vehicle admit Independent with ADL's Yes Is patient alert and oriented? Yes Barriers to Discharge No Comment Home to the care of family, DC this evening vs tomorrow is likely, close outpatient follow up Discharge Plan Home Transportation Arrangement POV Referrals Initiated None needed
--- NOTE | 2022-12-08 15:21 | PM.DS.1 ---
History of Present Illness History of Present Illness Date Patient Seen: 12/08/22 Time Patient Seen: 15:22 Chief complaint: chills/pain LT ABD/N T-1 Narrative: Niru is a 72-year-old woman who presents with right upper quadrant pain, nausea and vomiting starting at 7:00 p.m. last night. She has never had similar pain in the past. CT scan and ultrasound show a distended gallbladder and cholelithiasis. She has not eaten anything today. She does not take blood thinners. Discharge Providers Provider Date of admission: 12/07/22 11:59 Discharge Date: 12/08/22 Discharge provider: Clayton Ta MD Summary Hospital Course Discharge Diagnosis: Acute cholecystitis Hospital Course: Niru did well following her laparoscopic cholecystectomy. She is tolerating a diet following day with good pain control. She was discharged home on postop day 1. Exam Vital Signs (past 8 hours): - 12/08/22 08:00 12/08/22 11:00 Temperature 97.3 F L 98.0 F Pulse Rate 68 67 Respiratory Rate 17 17 Blood Pressure 117/63 118/60 Pulse Oximetry 94 96 Oxygen Flow Rate 1.5 0 Oxygen Delivery Method Nasal Cannula Oxygen Flow Rate 0 Objective Labs 12/08/22 05:18 12/08/22 05:18 Labs: Laboratory Results - last 24 hr 12/07/22 12/08/22 12/08/22 15:00 05:18 05:18 WBC 15.4 H RBC 3.95 L Hgb 11.6 L Hct 35.3 L MCV 89.3 MCH 29.5 MCHC 33.0 RDW 14.4 Plt Count 309 Neut % (Auto) 84.3 H Lymph % (Auto) 10.2 L [place] % (Auto) 5.4 Eos % (Auto) 0.0 L Baso % (Auto) 0.1 Neut # (Auto) 84011 H Lymph # (Auto) 1600 [place] # (Auto) 800 Eos # (Auto) 0 Baso # (Auto) 0 Sodium 133 L Potassium 4.0 Chloride 98 Carbon Dioxide 25 BUN 12 Creatinine 0.70 Estimated GFR > 60 BUN/Creatinine Ratio 17.1 Glucose 118 H Calcium 8.4 Total Bilirubin 0.4 AST 87 H ALT 64 H Alkaline Phosphatase 99 D Total Protein 6.4 Albumin 3.4 L Globulin 3.0 Albumin/Globulin Ratio 1.1 Urine Color Yellow Urine Appearance Clear Urine pH 5.0 Ur Specific [place] 1.010 Urine Protein Negative Urine Glucose (UA) Negative Urine Ketones Negative Urine Occult Blood Trace-intact Urine Nitrate Negative Urine Bilirubin Negative Urine Urobilinogen 0.2 Ur Leukocyte Esterase Negative Urine RBC None seen Urine WBC None seen Ur Squamous Epith Cells 0-1 /hpf Urine Bacteria Few (2-10) H Ur Culture Indicated? Cult not indicated PFSH Medical History BMI 36.0-36.9,adult Diabetes mellitus (~2018) DJD (degenerative joint disease) Hyperlipidemia Skin cancer Type 2 diabetes, diet controlled Surgical History History of hysterectomy for cancer (~1997) S/P hip replacement (~2002) S/P hip replacement (~1997) Social History household members: family and none Smoking Status: Never smoker alcohol intake: never eating out: rarely or never Type(s) of exercise: walking Discharge Plan Discharge Plan Patient Disposition: Home Provider Discharge Comment: No lifting greater than 20 lb for 2 weeks. Okay to remove the outer dressing and shower after 24 hours. Leave the Steri-Strips on until they start to peel off in 1-2 weeks. Discharge orders & Medications Prescriptions: New hydrocodone-acetaminophen 5-325 mg tablet 1 tab PO Q8H PRN (Reason: pain) Qty: 10 0RF Continued simvastatin 40 mg tablet 20 mg PO BEDTIME Label Comments: take 1/2 tablet by mouth at bedtime Rx Instructions: TAKE 1/2 A TAB BY MOUTH AT BEDTIME. Follow up/Referrals: Miscellaneous,Doctor, MD [Non-Staff] - Visit Report/Discharge Packet Instructions: DI for Laparoscopy, DI for Constipation, How to Prevent Falls, DI for Prescription Opioid Use, [facility]: Wound Care Stand Alone Forms: Patient Portal/API, Stroke Signs & Symptoms Discharge Data Attending Provider: Clayton Ta [facility] Deep Vein Thrombosis/Pulmonary Embolism Present on Admission: No
--- NOTE | 2022-12-08 16:05 | PC.NURSE ---
Discharge: Pt feels ready to d/c to home. Tolerates diet w/out problems, voids w/out diff. Minimal use of pain meds. Dr. Matthew here to see pt and MD gave d/c instructions. D/c instructions reviewed. Questions answered. Pt d/c to home via auto.
== END 2022-12-08 15:40 | disposition home or self-care (01) ==
LOC: ED 11:58 → AC 12:13
PROVIDERS: Nurse Anesthetist, Certified Registered; Admitting Provider Surgery; Emergency Provider Emergency Medicine; Referring Provider Emergency Medicine; Visit Provider Surgery
PROC: 0FT44ZZ Resection of Gallbladder, Percutaneous Endoscopic Approach (ICD-10-PCS; CPT 47562; principal; 2022-12-07 15:00)
DX: K81.0 Acute cholecystitis (principal); E11.9 Type 2 diabetes mellitus without complications; Z79.84 Long term (current) use of oral hypoglycemic drugs
CPT/HCPCS: 47562; 36415; 51798; 74177; 76705; 80053; 81001; 83690; 85025; 87635; 96361; 96365; 96375; 99221; 99285; C9803; G0378; J0330; J0690; J1100; J1170; J2250; J2270; J2405; J2704; J3010; J3490; Q9967